=== PATIENT | female | born 1965 | race Caucasian/White ===

== ENCOUNTER 2017-08-21 13:58 | Emergency (ER) | payer SELFPAY ==
[~2017-08-21] VITALS: Ht 170.2 cm; Wt 63.6 kg
[2017-08-21 14:02] VITALS: BP 147/69; PULSE 86; RESP 18; TEMP 97.8; O2SAT 97
--- NOTE | 2017-08-21 22:13 | PD ---
Physical Exam Date Seen by Provider: Aug 21, 2017 Time Seen by Provider: 15:40 Narrative 51-year-old female presents to the emergency department for several complaints. She reports chronic congestion and is worsening over the past week. She also reports neck pain that has also been ongoing for 1 week. Patient also states that over the weekend, her legs gave out and she fell. She would like to be evaluated for these complaints. Data Data Last Documented VS Vital Signs Date Time Temp Pulse Resp B/P (MAP) Pulse Ox O2 Delivery O2 Flow Rate FiO2 08/21/17 14:02 97.8 86 18 147/69 (95) 97 MDM Supervised Visit with STANLEY: No Narrative Course 51-year-old female presents to the emergency department for several complaints. Patient is initially seen in triage. She left AGAINST MEDICAL ADVICE before she could be placed in a medical bed. Diagnosis Primary Impression: Left against medical advice Disposition: 07 AGAINST MEDICAL ADVICE Komal Rivero Aug 21, 2017 22:13
== END 2017-08-21 16:18 | disposition left against medical advice (07) ==
LOC: NED 13:58
DX: M54.2 Cervicalgia (principal)
CPT/HCPCS: 99281

== ENCOUNTER 2018-03-10 20:32 | Inpatient (IN) ==
[2018-03-10] MEDS ORDERED: Sod Chloride 0.9% Inj 1,000 ML IV.SIG ONE ×2 (21:28→21:33)
[2018-03-10] MEDS ORDERED: Vancomycin Inj 1,000 MG in Sodium Chlor 0.9% Inj 250 ML IV.SIG ONE (21:28)
[2018-03-10] MEDS ORDERED: Acetaminophen 650 MG Supp RECTAL ONE (21:30)
--- NOTE | 2018-03-10 22:01 | XR ---
EXAM DATE: 03/10/2018 9:57 PM EDT AGE/SEX: 52 years / Female INDICATIONS: Fever. CLINICAL DATA: This is the patient's initial encounter. Patient reports that signs and symptoms have been present for 1 day and indicates a pain score of Nonresponsive. MEDICAL/SURGICAL HISTORY: Non-responsive. Non-responsive. COMPARISON: No prior exams available for comparison. FINDINGS: The lungs are symmetrically aerated. There is indistinctness of the central bronchopulmonary markings , right greater than left. Cannot exclude central infiltrates. The heart is normal in size. Both mayo diaphragms well delineated. No evidence of pneumothorax. CONCLUSION: Indistinctness of the central bronchopulmonary markings, right greater than left suggesting possible right central infiltrate. Electronically signed by: Horacio Cooper MD 03/10/2018 10:00 PM EDT
[2018-03-10 22:02] LABS: Baso % (Auto) 0.2 % (0.0-2.0); Eos % (Auto) 0.3 % (0.0-4.0); Hemoglobin 14.4 gm/dL (11.6-15.3); Lymph # (Auto) 1.4 th/mm3 (1.0-4.8); Lymph % (Auto) 9.5 % (9.0-44.0); Mean Corpuscular HGB Conc 33.4 % (32.0-36.0); Mean Corpuscular Hemoglobin 29.7 pg (27.0-34.0); Mean Corpuscular Volume 88.9 fL (80.0-100.0); Mono # (Auto) 1.3 th/mm3 (0.0-0.9); Mono % (Auto) 8.9 % (0.0-8.0); Neut # (Auto) 12.2 th/mm3 (1.8-7.7); Neut % (Auto) 81.1 % (16.0-70.0); Platelet Count 219 th/mm3 (150-450); Red Blood Count 4.83 mil/mm3 (4.00-5.30); Red Cell Distribution Width 14.4 % (11.6-17.2); White Blood Count 15.1 th/mm3 (4.0-11.0)
[2018-03-10 22:13] LABS: Activated Partial Thrombo Time 28.5 sec (24.3-30.1); INR 1.3 Ratio; Prothrombin Time 12.7 sec (9.8-11.6)
[2018-03-10 22:24] LABS: Alanine Aminotransferase 32 U/L (10-53); Albumin 2.7 g/dL (3.4-5.0); Anion Gap 9 meq/L (5-15); Aspartate Aminotransferase 29 U/L (15-37); Blood Urea Nitrogen 12 mg/dL (7-18); Calcium 9.3 mg/dL (8.5-10.1); Carbon Dioxide 28.5 meq/L (21.0-32.0); Chloride 98 meq/L (98-107); Glomerular Filtration Rate 54 mL/min (>89); Glucose,Random 103 mg/dL (74-106); Potassium 4.2 meq/L (3.5-5.1); Sodium 135 meq/L (136-145)
[2018-03-10 22:34] LABS: Alkaline Phosphatase 119 U/L (45-117); Thyroid Stimulating Hormone 0.419 uIU/mL (0.358-3.740); Total Protein 7.6 g/dL (6.4-8.2)
[2018-03-10 22:45] LABS: Creatine Kinase 91 U/L (26-192)
[2018-03-10 23:02] LABS: Bilirubin,Urine Negative (Negative); Clarity,Urine Clear (Clear); Color,Urine Amber (Yellw/Straw); Glucose,Urine (UA) Negative (Negative); Leukocyte Esterase,Urine Negative (Negative); Mucus,Urine Few /lpf (Occasional); Nitrite,Urine Negative (Negative); Specific Gravity,Urine 1.018 (1.002-1.035); Urobilinogen,Urine 4 or Greater mg/dL (Less than 2)
[2018-03-10 23:07] LABS: Amphetamine Screen,Urine Neg (Neg); Barbiturate Screen,Urine Neg (Neg); Cannabinoid Screen,Urine Pos (Neg); Cocaine Screen,Urine Neg (Neg)
[2018-03-10 23:12] LABS: Opiate Screen,Urine Pos (Neg)
--- NOTE | 2018-03-10 23:53 | ED ---
HPI General Chief Complaint: Altered Mental Status Stated Complaint: Skin Time Seen by Provider: 03/10/18 20:57 Source: EMS Mode of arrival: EMS Limitations: altered mental status History of Present Illness HPI narrative: 52-year-old female presents to the emergency department reportedly from home after being found partially closed and disoriented by boyfriend. Patient presents via EMS. Patient was identified to have fever upon EMS assessment and upon arrival to the emergency department. Patient is unable to provide any useful history as she is able to provide simple yes no answers to her name but cannot explain why she is here appears very confused. Patient does present febrile. Patient has bilateral upper extremity cellulitis with multiple abscesses some spontaneously draining purulent drainage. Patient has prior history of MRSA infection. Patient does admit to IV drug abuse of prescription medications. Patient does not know when she last injected any of her narcotics. Patient does not complain of any chest pain or abdominal pain no report of vomiting or diarrhea. Patient's O2 saturations on room air 88% patient has very congested cough. MD complaint: altered mental status Onset (ago): hour(s) Timing confirmed by: other (Per EMS from) Severity: severe Consistency of symptoms: unknown Context: drug abuse and unknown Associated symptoms: cough, fever and rash Related Data Home Medications Medication Instructions Recorded Confirmed Unable to Obtain Home Meds 03/11/18 03/11/18 Allergies Allergy/AdvReac Type Severity Reaction Status Date / Time No Known Allergies Allergy Unverified 03/10/18 20:53 Review of Systems ROS Unobtainable ROS Unobtainable: unobtainable due to mental status PMFSH Medical History Medical History Hx MRSA infection (Acute) Surgical History Surgical History Surgical history unknown (Acute) Family History Family History Other Family history unknown Social History Social History Second Hand Smoke Exposure: Yes Smoking Status: Current every day smoker Tobacco Type: Cigarettes How Often Do You Have a Drink Containing Alcohol: Unable to Obtain Recent Travel in [place] within the Last 8 Weeks: No Recent Out of Country Travel within the Last 8 Weeks: No Immunization History Tetanus Immunization: Unable to Assess Hx Influenza Vaccine This Season: Unable to Assess Exam Narrative Exam Narrative: GENERAL: Well-nourished, well-developed patient. GCS 13 (E:3, V: 5, M:5) SKIN: Focused skin assessment warm/dry. Bilateral upper extremities with erythema diffuse soft tissue areas of induration nonfluctuant tender few areas of spontaneously draining ulcerations right upper extremity. HEAD: Normocephalic. Atraumatic no scalp soft tissue swelling redness induration abrasion laceration or bony normality. EYES: No scleral icterus. No injection or drainage. Pupils equal reactive to light. NECK: Supple, trachea midline. No JVD or lymphadenopathy. CARDIOVASCULAR: Increased regular rate and rhythm without murmurs, gallops, or rubs. RESPIRATORY: Breath sounds equal bilaterally with rhonchi right base. No accessory muscle use. GASTROINTESTINAL: Abdomen soft, non-tender, nondistended. No redness induration guarding or rebound no ecchymosis MUSCULOSKELETAL: No cyanosis, or edema. Bilateral lower extremities dorsalis pedis pulses 2+ to palpation bilateral upper extremities radial pulses 2+ to palpation extensive erythema areas of induration. Intact range of motion bilateral upper extremities bilateral lower extremities without deformity. BACK: Nontender without obvious deformity. No CVA tenderness. Course Initial Documented Vital Signs Temperature 103.3 F H 03/10/18 20:49 Pulse Rate 101 H 03/10/18 20:49 Respiratory Rate 20 03/10/18 20:49 Blood Pressure 119/80 03/10/18 20:49 Pulse Oximetry 95 03/10/18 20:49 Last Documented Vital Signs Temperature 98.7 F 03/10/18 23:47 Pulse Rate 76 03/11/18 01:05 Respiratory Rate 16 03/11/18 01:05 Blood Pressure 101/51 L 03/11/18 01:05 Pulse Oximetry 98 03/11/18 01:05 Critical Care Time Critical Care Time: Yes Total Critical Care Time: 35 Attestation: Aggregate critical care time was 35 minutes. Time to perform other separately billable procedures was not included in the critical care time. My time did not include minutes spent treating any other patients simultaneously or on activities that did not directly contribute to the patient's treatment. The services I provided to this patient were to treat and/or prevent clinically significant deterioration that could result in: Respiratory failure, arrhythmia , I provided critical care services requiring my management, as noted below: Chart data review, documentation time, medication orders and management, vital sign assessments/reviewing monitor data, ordering and reviewing lab tests, ordering and interpreting/reviewing x-rays and diagnostic studies, care of the patient and discussion of the patient with the admitting physicians. Medical Decision Making MDM Narrative Medical decision making narrative: Patient was admitted abuse of prescription narcotics with IV drug use presents febrile with altered mentation and bilateral upper extremity cellulitis and multiple various staged abscesses with prior history of MRSA infection. Febrile upon arrival to the emergency department. IV access obtained patient placed on monitoring manager with continuous pulse oximetry 2 L/min nasal cannula administered patient administered 2 L of normal saline vancomycin and cefepime and imaging study identifies central right greater than left infiltrate consistent with probable pneumonia also administered acetaminophen 650 mg rectally and urinary catheter inserted for monitoring of fluid status. After IV fluids and effervescence mentation has improved she knows issues where she is and that she is being admitted; patient does have leukocytosis lactic acid is not elevated chest x-ray shows infiltrate consistent with pneumonia antibiotic spectrum has been brought not to cover for possible aspiration although no evidence of aspiration at this time; urinalysis no source of UTI but urine drug screen is positive for opiates and benzodiazepines and cannabinoids. Patient's case discussed with on-call [facility] MD for admission Medical Screen Exam Complete: Yes Emergency Medical Condition: Yes Differential Diagnosis Differential Diagnosis: Sepsis, pneumonia, endocarditis, cellulitis, multiple abscesses, UTI, seizure, polysubstance abuse, ICH, metabolic encephalopathy, also to consider meningitis although no nuchal rigidity. Medical Records Medical records reviewed: Yes I reviewed the patient's medical records. Lab Data Lab results reviewed: Yes I reviewed the patient's lab results. Result diagrams: 03/10/18 21:40 03/10/18 21:40 Lab Results 03/10/18 03/10/18 03/10/18 Range/Units 21:40 21:40 21:40 WBC 15.1 H (4.0-11.0) th/mm3 RBC 4.83 (4.00-5.30) mil/mm3 Hgb 14.4 (11.6-15.3) gm/dL Hct 43.0 (35.0-46.0) % MCV 88.9 (80.0-100.0) fL MCH 29.7 (27.0-34.0) pg MCHC 33.4 (32.0-36.0) % RDW 14.4 (11.6-17.2) % Plt Count 219 (150-450) th/mm3 MPV 9.0 (7.0-11.0) fL Neut % (Auto) 81.1 H (16.0-70.0) % Lymph % (Auto) 9.5 (9.0-44.0) % [place] % (Auto) 8.9 H (0.0-8.0) % Eos % (Auto) 0.3 (0.0-4.0) % Baso % (Auto) 0.2 (0.0-2.0) % Neut # (Auto) 12.2 H (1.8-7.7) th/mm3 Lymph # (Auto) 1.4 (1.0-4.8) th/mm3 [place] # (Auto) 1.3 H (0.0-0.9) th/mm3 Eos # (Auto) 0.0 (0.0-0.4) th/mm3 Baso # (Auto) 0.0 (0.0-0.2) th/mm3 WBC Differential . Differential Comment Auto diff final PT 12.7 H (9.8-11.6) sec INR 1.3 Ratio APTT 28.5 (24.3-30.1) sec Sodium 135 L (136-145) meq/L Potassium 4.2 (3.5-5.1) meq/L Chloride 98 (98-107) meq/L Carbon Dioxide 28.5 (21.0-32.0) meq/L Anion Gap 9 (5-15) meq/L BUN 12 (7-18) mg/dL Creatinine 1.06 H (0.50-1.00) mg/dL Estimated GFR 54 L (>89) mL/min Random Glucose 103 (74-106) mg/dL Lactic Acid (0.4-2.0) mmol/L Calcium 9.3 (8.5-10.1) mg/dL Total Bilirubin 1.0 (0.2-1.0) mg/dL AST 29 (15-37) U/L ALT 32 (10-53) U/L Alkaline Phosphatase 119 H (45-117) U/L Ammonia (11-32) mcmol/L Total Creatine Kinase 91 (26-192) U/L Troponin I Less than 0.02 L (0.02-0.05) ng/mL Total Protein 7.6 (6.4-8.2) g/dL Albumin 2.7 L (3.4-5.0) g/dL TSH 0.419 (0.358-3.740) uIU/mL Urine Color (Yellw/Straw) Urine Clarity (Clear) Urine pH (5.0-8.5) Ur Specific [place] (1.002-1.035) Urine Protein (Neg-Trace) mg/dL Urine Glucose (UA) (Negative) mg/dL Urine Ketones (Negative) mg/dL Urine Occult Blood (Negative) Urine Nitrate (Negative) Urine Bilirubin (Negative) Urine Urobilinogen (Less than 2) mg/dL Ur Leukocyte Esterase (Negative) Urine RBC (0-3) /hpf Urine WBC (0-5) /hpf Urine Mucus (Occasional) /lpf Micro UA Comment Urine Culture Comments Urine Opiates Screen (Neg) Ur Barbiturates Screen (Neg) Ur Amphetamines Screen (Neg) U Benzodiazepines Scrn (Neg) Urine Cocaine Screen (Neg) U Cannabinoids Screen (Neg) Serum Alcohol Less than 3 (0-5) mg/dL 03/10/18 03/10/18 03/10/18 Range/Units 21:40 22:19 22:40 WBC (4.0-11.0) th/mm3 RBC (4.00-5.30) mil/mm3 Hgb (11.6-15.3) gm/dL Hct (35.0-46.0) % MCV (80.0-100.0) fL MCH (27.0-34.0) pg MCHC (32.0-36.0) % RDW (11.6-17.2) % Plt Count (150-450) th/mm3 MPV (7.0-11.0) fL Neut % (Auto) (16.0-70.0) % Lymph % (Auto) (9.0-44.0) % [place] % (Auto) (0.0-8.0) % Eos % (Auto) (0.0-4.0) % Baso % (Auto) (0.0-2.0) % Neut # (Auto) (1.8-7.7) th/mm3 Lymph # (Auto) (1.0-4.8) th/mm3 [place] # (Auto) (0.0-0.9) th/mm3 Eos # (Auto) (0.0-0.4) th/mm3 Baso # (Auto) (0.0-0.2) th/mm3 WBC Differential Differential Comment PT (9.8-11.6) sec INR Ratio APTT (24.3-30.1) sec Sodium (136-145) meq/L Potassium (3.5-5.1) meq/L Chloride (98-107) meq/L Carbon Dioxide (21.0-32.0) meq/L Anion Gap (5-15) meq/L BUN (7-18) mg/dL Creatinine (0.50-1.00) mg/dL Estimated GFR (>89) mL/min Random Glucose (74-106) mg/dL Lactic Acid 1.4 (0.4-2.0) mmol/L Calcium (8.5-10.1) mg/dL Total Bilirubin (0.2-1.0) mg/dL AST (15-37) U/L ALT (10-53) U/L Alkaline Phosphatase (45-117) U/L Ammonia 27 (11-32) mcmol/L Total Creatine Kinase (26-192) U/L Troponin I (0.02-0.05) ng/mL Total Protein (6.4-8.2) g/dL Albumin (3.4-5.0) g/dL TSH (0.358-3.740) uIU/mL Urine Color (Yellw/Straw) Urine Clarity (Clear) Urine pH (5.0-8.5) Ur Specific [place] (1.002-1.035) Urine Protein (Neg-Trace) mg/dL Urine Glucose (UA) (Negative) mg/dL Urine Ketones (Negative) mg/dL Urine Occult Blood (Negative) Urine Nitrate (Negative) Urine Bilirubin (Negative) Urine Urobilinogen (Less than 2) mg/dL Ur Leukocyte Esterase (Negative) Urine RBC (0-3) /hpf Urine WBC (0-5) /hpf Urine Mucus (Occasional) /lpf Micro UA Comment Urine Culture Comments Urine Opiates Screen Pos H (Neg) Ur Barbiturates Screen Neg (Neg) Ur Amphetamines Screen Neg (Neg) U Benzodiazepines Scrn Pos H (Neg) Urine Cocaine Screen Neg (Neg) U Cannabinoids Screen Pos H (Neg) Serum Alcohol (0-5) mg/dL 03/10/18 Range/Units 22:40 WBC (4.0-11.0) th/mm3 RBC (4.00-5.30) mil/mm3 Hgb (11.6-15.3) gm/dL Hct (35.0-46.0) % MCV (80.0-100.0) fL MCH (27.0-34.0) pg MCHC (32.0-36.0) % RDW (11.6-17.2) % Plt Count (150-450) th/mm3 MPV (7.0-11.0) fL Neut % (Auto) (16.0-70.0) % Lymph % (Auto) (9.0-44.0) % [place] % (Auto) (0.0-8.0) % Eos % (Auto) (0.0-4.0) % Baso % (Auto) (0.0-2.0) % Neut # (Auto) (1.8-7.7) th/mm3 Lymph # (Auto) (1.0-4.8) th/mm3 [place] # (Auto) (0.0-0.9) th/mm3 Eos # (Auto) (0.0-0.4) th/mm3 Baso # (Auto) (0.0-0.2) th/mm3 WBC Differential Differential Comment PT (9.8-11.6) sec INR Ratio APTT (24.3-30.1) sec Sodium (136-145) meq/L Potassium (3.5-5.1) meq/L Chloride (98-107) meq/L Carbon Dioxide (21.0-32.0) meq/L Anion Gap (5-15) meq/L BUN (7-18) mg/dL Creatinine (0.50-1.00) mg/dL Estimated GFR (>89) mL/min Random Glucose (74-106) mg/dL Lactic Acid (0.4-2.0) mmol/L Calcium (8.5-10.1) mg/dL Total Bilirubin (0.2-1.0) mg/dL AST (15-37) U/L ALT (10-53) U/L Alkaline Phosphatase (45-117) U/L Ammonia (11-32) mcmol/L Total Creatine Kinase (26-192) U/L Troponin I (0.02-0.05) ng/mL Total Protein (6.4-8.2) g/dL Albumin (3.4-5.0) g/dL TSH (0.358-3.740) uIU/mL Urine Color [place] (Yellw/Straw) Urine Clarity Clear (Clear) Urine pH 6.0 (5.0-8.5) Ur Specific [place] 1.018 (1.002-1.035) Urine Protein Negative (Neg-Trace) mg/dL Urine Glucose (UA) Negative (Negative) mg/dL Urine Ketones Negative (Negative) mg/dL Urine Occult Blood Negative (Negative) Urine Nitrate Negative (Negative) Urine Bilirubin Negative (Negative) Urine Urobilinogen 4 or greater (Less than 2) mg/dL Ur Leukocyte Esterase Negative (Negative) Urine RBC 1 (0-3) /hpf Urine WBC 1 (0-5) /hpf Urine Mucus Few H (Occasional) /lpf Micro UA Comment Cath-culture not ind Urine Culture Comments Cath-cult not ind Urine Opiates Screen (Neg) Ur Barbiturates Screen (Neg) Ur Amphetamines Screen (Neg) U Benzodiazepines Scrn (Neg) Urine Cocaine Screen (Neg) U Cannabinoids Screen (Neg) Serum Alcohol (0-5) mg/dL Imaging Data Radiologist's impression: Chest X-Ray 03/10/18 21:27 CONCLUSION: Indistinctness of the central bronchopulmonary markings, right greater than left suggesting possible right central infiltrate. Head CT 03/11/18 00:00 CONCLUSION: 1. 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 2. No hemorrhage or acute infarction involving a major vascular territory. 3. Chronic paranasal sinus disease. . ECG Data EKG Prior to Arrival: No Attestation: I personally reviewed and interpreted this ECG as follows: Prior ECG tracings: not available for review Interpretation: EKG: Normal sinus rhythm rate 96 left atrial enlargement no acute ST elevation or injury pattern change noted Discharge Plan Discharge Disposition Patient Disposition: 30 Still Patient Discharge Condition Condition: Fair Discharge Details Diagnosis: Altered mental status, Sepsis, Pneumonia, Polysubstance abuse Physicians Team ED Provider: Yajaira Bradley Primary Care Provider: UNKNOWN, Attending Provider: Mila Woods Status ED Status: Admitted Patient
--- NOTE | 2018-03-11 00:33 | CT ---
EXAM DATE: 03/11/2018 12:19 AM EDT AGE/SEX: 52 years / Female INDICATIONS: Altered mental status. CLINICAL DATA: This is the patient's initial encounter. Patient reports that signs and symptoms have been present for 1 day and indicates a pain score of Nonresponsive. MEDICAL/SURGICAL HISTORY: None. None. RADIATION DOSE: 56.35 CTDI (mGy) COMPARISON: No prior exams available for comparison. TECHNIQUE: CT of the head without contrast. Using automated exposure control and adjustment of the mA and/or kV according to patient size, radiation dose was kept as low as reasonably achievable to ob tain optimal diagnostic quality images. DICOM format image data is available electronically for revi ew and comparison. FINDINGS: Cerebrum: Bilateral basal ganglia lacunar infarctions. The ventricles are normal for age. No eviden ce of midline shift, mass lesion, hemorrhage or acute infarction. No extraaxial fluid collections ar e seen. Posterior Fossa: The cerebellum and brainstem are intact. The 4th ventricle is midline. The cerebe llopontine angle is unremarkable. Extracranial: The visualized portion of the orbits is intact. Significant mucosal thickening involvi ng all visualized paranasal sinuses. No air-fluid levels. Skull: The calvaria is intact. No evidence of skull fracture. CONCLUSION: 1. 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 2. No hemorrhage or acute infarction involving a major vascular territory. 3. Chronic paranasal sinus disease. . Electronically signed by: Horacio Anderson MD 03/11/2018 12:31 AM EDT
[2018-03-11] MEDS ORDERED: Vancomycin Consult Pharmacy OTHER ONE (01:14)
[2018-03-11] MEDS ORDERED: Acetaminophen 325 MG Tablet PO PRN (01:15)
[2018-03-11] MEDS ORDERED: Temazepam 15 MG Capsule PO PRN (01:15)
[2018-03-11] MEDS ORDERED: Bisacodyl 10 MG Supp RECTAL PRN (01:15)
[2018-03-11] MEDS ORDERED: Vancomycin Consult Pharmacy OTHER SCH (01:30)
--- NOTE | 2018-03-11 01:54 | P.HPIM ---
History of Present Illness Primary Care Physician: UNKNOWN History of Present Illness: 52 y/o female with a medical history of IVDA was brought to the ED when she was found disoriented by her boyfriend. Upon assessment patient is only oriented to self, ROS is limited due to mentation. She can not state why she is in the hospital. She was able to tell the ER physician that she does IV drugs, but does not know when she last injected. Patient is currently restrained in soft restraints. She nods no to chest pain. Inpatient Certification: I certify that the inpatient services were ordered in accordance with Medicare regulations governing the order. This includes certification that hospital inpatient services are reasonable and necessary and in the case of services not specified as inpatient-only under 42 CFR 419.22(n), that they are appropriately provided as inpatient services in accordance to with the 2-midnight benchmark under 43 CFR 412.3(e) Estimated Total Length of Stay (Days): 2 Plans for Post Hospital Care: Not yet determined Review of Systems All other systems reviewed negative except as stated [facility] - History History Provided By: [employer] Manager / EMT - Medical History Medical History: Medical History (Last Updated 03/11/18 @ 01:50 by ARIEL Casas) Hx MRSA infection - Surgical History Surgical History: Surgical History (Last Updated 03/11/18 @ 01:51 by ARIEL Casas) Surgical history unknown - Family History Family History: Family History (Last Updated 03/11/18 @ 01:50 by ARIEL Casas) Other Family history unknown - Tobacco History Second Hand Smoke Exposure: Yes Tobacco Use In Past 30 Days: Yes Smoking Status: Current every day smoker Tobacco Type: Cigarettes - Alcohol History How Often Do You Have a Drink Containing Alcohol: Unable to Obtain - Travel History Recent Travel in the [place] Within the Last 8 Weeks: No Recent Travel Out of the Country Within the Last 8 Weeks: No - Immunization History Tetanus Immunization: Unable to Assess Hx Influenza Vaccine This Season: Unable to Assess Medications and Allergies Active Medications: Active Medications Acetaminophen (Tylenol) 650 mg PO Q4H PRN PRN Reason: Temp > 100.4 Al Hydroxide/Mg Hydroxide (Milk Of Magnesia Liq) 30 ml PO Q12H PRN PRN Reason: Mild Constipation Bisacodyl (Dulcolax Supp) 10 mg RECTAL DAILY PRN PRN Reason: SEVERE CONSITIPATION Cefepime HCl 2,000 mg/ Sodium (Chloride) 100 mls @ 200 mls/hr IV.SIG Q8H ASYA Sodium Chloride (Ns Inj) 1,000 mls @ 100 mls/hr IV.CONT .Q10H ASYA Lactulose (Lactulose Liq) 30 ml PO DAILY PRN PRN Reason: SEVERE CONSITIPATION Morphine Sulfate (Morphine Inj) 4 mg IV.PUSH Q4H PRN PRN Reason: pain 6-10 Ondansetron HCl (Zofran Inj) 4 mg IV.PUSH Q6H PRN PRN Reason: NAUSEA OR VOMITING Pharmacy Profile Note (Vancomycin Consult Pharmacy) 1 each OTHER UNSCH ASYA Senna/Docusate Sodium (Roma-Colace) 1 tab PO BID [facility] Sennosides (Senokot) 17.2 mg PO Q12H PRN PRN Reason: Moderate Constipation Sodium Chloride (Ns Flush) 2 ml IV.FLUSH PRN PRN PRN Reason: FLUSH AFTER USING IV ACCESS Temazepam (Restoril) 15 mg PO HS PRN PRN Reason: INSOMNIA Allergies Allergy/AdvReac Type Severity Reaction Status Date / Time No Known Allergies Allergy Unverified 03/10/18 20:53 Home Medications Medication Instructions Recorded Confirmed Type Unable to Obtain Home Meds 03/11/18 03/11/18 History Exam Vital signs: Vital Signs 03/10/18 20:49 03/10/18 22:01 03/10/18 22:40 Temperature 103.3 F H Pulse Rate 101 H 93 H Respiratory Rate 20 18 Blood Pressure 119/80 108/55 L Pulse Oximetry 95 95 94 L 03/10/18 23:47 03/11/18 01:05 Temperature 98.7 F Pulse Rate 88 76 Respiratory Rate 18 16 Blood Pressure 111/57 L 101/51 L Pulse Oximetry 92 L 98 Intake & Output 03/10/18 03/10/18 03/11/18 06:59 18:59 06:59 Intake Total 4350 / 4350 Balance 4350 / 4350 Weight 77.111 kg Intake: IV 2350 / 2350 Maxipime Inj 2,000 MG In NS Inj 100 / 100 100 ML @ 200 mls/hr IV.SIG ONCE ONE Rx#:[id number] NS Inj 1,000 ML @ Wide Open IV. 1999 SIG BOLUS ONE Rx#:[id number] Vancomycin Inj 1,000 MG In NS 250 / 250 Inj 250 ML @ 250 mls/hr IV.SIG ONCE ONE Rx#:[id number] Other 1999 Other: Other Intake Source Saline Solution Narrative: GENERAL: This is a well-nourished, well-developed patient, in no apparent distress. SKIN: bilateral forearm cellulitis draining purulent drainage CARDIOVASCULAR: Regular rate and rhythm without murmurs, gallops, or rubs. RESPIRATORY: Clear to auscultation. Breath sounds equal bilaterally. No wheezes , rales, or rhonchi. GASTROINTESTINAL: Abdomen soft, non-tender, nondistended. Normal active bowel sounds MUSCULOSKELETAL: Extremities without clubbing, cyanosis, or edema. NEURO: Alert x 1 to person. Moves all ext x4, in soft restraints Results - Labs CBC & Chem 7: 03/10/18 21:40 03/10/18 21:40 Labs: Short CBC 03/10/18 Range/Units 21:40 WBC 15.1 H (4.0-11.0) th/mm3 Hgb 14.4 (11.6-15.3) gm/dL Hct 43.0 (35.0-46.0) % Plt Count 219 (150-450) th/mm3 BMP 03/10/18 21:40 Sodium 135 L Potassium 4.2 Chloride 98 Carbon Dioxide 28.5 BUN 12 Creatinine 1.06 H Calcium 9.3 Cardiac Enzymes 03/10/18 Range/Units 21:40 Total Creatine Kinase 91 (26-192) U/L Troponin I Less than 0.02 L (0.02-0.05) ng/mL Liver Function 03/10/18 Range/Units 21:40 Total Bilirubin 1.0 (0.2-1.0) mg/dL AST 29 (15-37) U/L ALT 32 (10-53) U/L Alkaline Phosphatase 119 H (45-117) U/L Albumin 2.7 L (3.4-5.0) g/dL Urine 03/10/18 Range/Units 22:40 Urine Color [place] (Yellw/Straw) Urine Clarity Clear (Clear) Urine pH 6.0 (5.0-8.5) Ur Specific Taylor 1.018 (1.002-1.035) Urine Protein Negative (Neg-Trace) mg/dL Urine Glucose (UA) Negative (Negative) mg/dL - Imaging Impressions Chest X-Ray 03/10/18 21:27 CONCLUSION: Indistinctness of the central bronchopulmonary markings, right greater than left suggesting possible right central infiltrate. Head CT 03/11/18 00:00 CONCLUSION: 1. 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 2. No hemorrhage or acute infarction involving a major vascular territory. 3. Chronic paranasal sinus disease. . Caprini VTE Risk Assessment Caprini VTE Risk Assessment: Moderate/High Risk (score >= 2) Caprini Risk Assessment Model: Point Value = 1 Point Value = 2 Point Value = 3 Point Value = 5 Age 41-60 Minor surgery BMI > 25 kg/m2 Swollen legs Varicose veins or History of unexplained or recurrent spontaneous Oral contraceptives or hormone replacement Sepsis (< 1 month) Serious lung disease, including pneumonia (< 1 month) Abnormal pulmonary function Acute myocardial infarction Congestive heart failure (< 1 month) History of inflammatory bowel disease Medical patient at bed rest Age 61-74 Arthroscopic surgery Major open surgery (> 45 min) Laparoscopic surgery (> 45 min) Malignancy Confined to bed (> 72 hours) Immobilizing plaster cast Central venous access Age >= 75 History of VTE Family history of VTE Factor V Leiden Prothrombin [id number] Lupus anticoagulant Anticardiolipin antibodies Elevated serum homocysteine Heparin-induced thrombocytopenia Other congenital or acquired thrombophilia Stroke (< 1 month) Elective arthroplasty Hip, pelvis, or leg fracture Acute spinal cord injury (< 1 month) Prophylaxis Regimen: Total Risk Factor Score Risk Level Prophylaxis Regimen 0-1 Low Early ambulation 2 Moderate Order ONE of the following: *Sequential Compression Device (SCD) *Heparin 5000 units SQ BID 3-4 Higher Order ONE of the following medications: *Heparin 5000 units SQ TID *Enoxaparin/Lovenox 40 mg SQ daily (WT < 150 kg, CrCl > 30 mL/min) *Enoxaparin/Lovenox 30 mg SQ daily (WT < 150 kg, CrCl > 10-29 mL/min) *Enoxaparin/Lovenox 30 mg SQ BID (WT < 150 kg, CrCl > 30 mL/min) AND/OR *Sequential Compression Device (SCD) 5 or more Highest Order ONE of the following medications: *Heparin 5000 units SQ TID (Preferred with Epidurals) *Enoxaparin/Lovenox 40 mg SQ daily (WT < 150 kg, CrCl > 30 mL/min) *Enoxaparin/Lovenox 30 mg SQ daily (WT < 150 kg, CrCl > 10-29 mL/min) *Enoxaparin/Lovenox 30 mg SQ BID (WT < 150 kg, CrCl > 30 mL/min) AND *Sequential Compression Device (SCD) Assessment and Plan - Plan Sepsis, wbc 15.1, tachycardia r/o Cellulitis, Bilateral forearm, left worse than right -US ordered r/o abscess -IV antibiotics vancomycin and cefepime -wound and blood cultures pending -Consult hand surgery for evaluation -NPO, IVF -Pain management with IV morphine Pneumonia Chest xray reviewed and shows Indistinctness of the central bronchopulmonary markings, right greater than left suggesting possible right central infiltrate. -Cont IVF and antibiotics -Duonebs as needed -IS -Mucinex IVDA -Patient will need counseling when oriented DVT prophylaxis: SCDs Discussed Condition With: Patient and RN
[2018-03-11] MEDS: Sod Chloride 0.9% Inj 1,000 ML IV.CONT SCH ×3 (05:27→22:25)
[2018-03-11] MEDS: Morphine Inj 4 MG/ML Vial IV.PUSH PRN (08:54)
--- NOTE | 2018-03-11 09:27 | US ---
EXAM DATE: 03/11/2018 8:54 AM EDT AGE/SEX: 52 years / Female INDICATIONS: Bilateral upper extremity cellulitis. CLINICAL DATA: This is the patient's initial encounter. Patient reports that signs and symptoms have been present for 4 - 6 days and indicates a pain score of 9/10. MEDICAL/SURGICAL HISTORY: . MRSA. IV drug abuse. None. COMPARISON: No prior exams available for comparison. FINDINGS: Grayscale and Doppler ultrasound imaging was performed in the area of interest which is located in th e left forearm. At the area of interest there is a subcutaneous hypoechoic avascular area measuring 6 .4 x 1.8 x 4.8 cm. Immediately adjacent to this structure is a subcutaneous round hypoechoic avascula r structure measuring 1.1 x 0.7 x 1.1 cm. CONCLUSION: 2 avascular hypoechoic subcutaneous areas at the area of interest in the left forearm. Given the clin ical history these may represent areas of developing infection/abscess. Electronically signed by: Javier Suarez MD 03/11/2018 9:26 AM EDT
[2018-03-11] MEDS: guaiFENesin 600 MG ER Tablet PO SCH ×2 (10:38→22:17)
[2018-03-11] MEDS: Senna/Docusate Sodium 8.6/50 MG Tablet PO SCH ×2 (10:38→22:18)
[2018-03-11] MEDS ORDERED: Lidocaine 2% Inj 50 ML Vial ONE (14:21)
[2018-03-11] MEDS ORDERED: Bupivacaine PF 0.5% Inj 30 ML Vial ONE (14:22)
[2018-03-11] MEDS ORDERED: Neomycin/Polymyxin G.U. Irrigant 1 ML Ampul ONE (15:04)
[2018-03-11] MEDS ORDERED: Lidocaine PF 1% Inj 5 ML Syringe INFILTRATN ONE (16:39)
[2018-03-11] MEDS ORDERED: Sugammadex Inj 200 MG/2 ML Vial IV.PUSH ONE (16:47)
[2018-03-11] MEDS ORDERED: Ketamine Inj 50 MG/5 ML Syringe IV.PUSH ONE (16:48)
--- NOTE | 2018-03-11 17:08 | ECG ---
Date Performed: 03/10/2018 Time Performed: 21:41:37 PTAGE: 52 years EKG: Sinus rhythm POSSIBLE LEFT ATRIAL ENLARGEMENT BORDERLINE RIGHT AXIS DEVIATION BORDERLINE ECG NO PREVIOUS TRACING DOCTOR: Jacques Nolan Interpretating Date/Time 03/11/2018 17:06:30
--- NOTE | 2018-03-11 17:26 | P.OP ---
- Preoperative Diagnosis (1) Abscess of left forearm (2) Abscess of right forearm Date of procedure: 03/11/18 Procedure: incision and drainage of multiple forearm abscesses left forearm incision and drainage multiple forearm abscesses right forearm Anesthesia: GETA Surgeon: Brad Interiano MD Estimated blood loss (mL): 10 Tourniquet time (min): 24 (24 mins left side and 12 mins right side) Pathology: other (swab forearm left and right) Operation and Findings: multiple subcutaneous pockets of abscess seven on the left side and 3 on the right side
[2018-03-11] MEDS ORDERED: fentaNYL Citrate Inj 100 MCG/2 ML Ampul ONE (17:37)
--- NOTE | 2018-03-11 18:07 | MP ---
cc: Brad Interiano MD DATE OF OPERATION: 03/11/2018 PREOPERATIVE DIAGNOSES: Multiple abscesses, left forearm, and multiple abscesses, right forearm. POSTOPERATIVE DIAGNOSES: Multiple abscesses left forearm, and multiple abscesses, right forearm. PROCEDURE PERFORMED: Incision and drainage of multiple abscesses, left forearm, and incision and drainage of multiple abscesses, right forearm. SURGEON: Brad Interiano MD ANESTHESIA: General. ESTIMATED BLOOD LOSS: 10 mL. TOURNIQUET TIME: 24 minutes on the left side and 12 minutes on the right side. SPECIMENS: Sent for culture and sensitivity from the left forearm and right forearm. DISPOSITION: To PACU stable. INDICATIONS FOR PROCEDURE: This is a 52-year-old female with history of IV drug abuse brought in to the ED with confusion and disorientation. The patient was found to have multiple abscesses involving both forearms. She has a history of MRSA. On examination, she had multiple draining abscesses involving the left forearm. She had intact distal circulation. She had intact sensation distally. Most of the abscesses were located in subcutaneous locations with a big abscess located over the proximal forearm extending over the volar and radial aspect of the forearm. She also had fluctuation in the region with draining purulent material. On the right side, she had multiple abscesses draining purulent material and all within subcutaneous locations. An ultrasound showed a complex collection of abscesses involving the proximal forearm measuring about 6 cm longitudinally. She had an elevated white count of 15 and she also had a fever of 103. The patient was consented for incision and drainage of multiple abscesses, both forearms. She was explained the risks and benefits of the procedure. PROCEDURE IN DETAIL: The patient was brought to the operating room. Under general anesthesia, the left upper and right upper extremities were thoroughly prepped and draped. Attention was initially directed to the left forearm. After limb elevation, tourniquet was inflated to 250 mmHg. Incision was made over the volar proximal forearm measuring about 3-4 cm, corresponding to the fluctuation site. After opening up the subcutaneous pocket, there was purulent material within the region with necrotic tissue. With blunt dissection, there was a pocket extending along the volar radial aspect of the proximal forearm onto the lateral aspect of the elbow region. Incision was then made just distal to the lateral aspect of the elbow region and the pocket was connecting between these 2 incisions. Five more incisions were made in the forearm, all small pockets of pus, which were all opened up. There was evidence of necrotic material within the region. A specimen was sent for culture and sensitivity. She did not have any clinical evidence of compartment syndrome. A thorough wash of the wounds was carried out using normal saline mixed with hydrogen peroxide and normal saline mixed with irrigant. About 2 liters of solution was used on the left side. The pockets were then packed with 1/4 inch iodoform packing material. Bleeding points were cauterized using bipolar cautery. The tourniquet was deflated at 24 minutes. A bulky forearm dressing was applied, which was held in place by Sof-Rol and bias hand wrap. Attention was then directed to the right forearm. She had 3 areas of fluctuation, one over the radial aspect of the distal forearm, one over the dorsolateral aspect of the proximal forearm and one in the mid forearm along the radial aspect. Attention was initially directed to the distal forearm. Incision was made. Purulent material was noted in the region and 2-3 mL of purulent material was drained from the region along with necrotic scar tissue, which was debrided. A proximal forearm incision was made measuring about 3 cm. On subcutaneous dissection, there was a pocket of purulent material and about 5-6 mL of purulent material was drained from this region. Another incision was made in the mid forearm corresponding to the fluctuation, which was opened up. There was another pocket of pus along the volar medial aspect of the proximal forearm, which was incised and purulent material was drained from the region. A thorough wash of the wounds was carried out using normal saline mixed with hydrogen peroxide. This was then followed by normal saline mixed with irrigant. Packing of the cavities was carried out with 1/4 inch iodoform packing material. A bulky hand dressing was applied. The tourniquet was deflated at 12 minutes. She had good distal circulation on release of the tourniquet. Sof-Rol and bias hand wrap were applied over the forearm. She had good circulation at the end of the procedure. The patient was recovered and sent to recovery in stable condition. The plan will be to bring her tomorrow for repeat debridement and wash. Brad Interiano MD SE/ariella , 05:32 PM , 05:46 PM
[2018-03-11] MEDS: Vancomycin Inj 1,250 MG in Sodium Chlor 0.9% Inj 250 ML IV.SIG SCH (18:17)
--- NOTE | 2018-03-11 18:26 | MB ---
cc: Brad Interiano MD DATE: 03/11/2018 REASON FOR CONSULTATION: Bilateral forearm infection. HISTORY OF PRESENT ILLNESS: The patient is a 52-year-old, right-hand dominant female brought to the ED by EMS after she was found disoriented by her boyfriend. The patient was found to have multiple forearm abscesses involving the right and left forearms. Hence, hand surgery was consulted. The patient states she has had these for several days now and she is unable to actually provide a reliable history regarding the symptomatology. She does complain of draining material from both forearms. She also complains of a fever. Denies any tingling, numbness. The patient also gives a history of similar complaints in the past and had multiple incisions and drainages of both forearms. She also gives a history of MRSA. The patient does give a history of IV drug abuse. PAST MEDICAL HISTORY: Reviewed. History of MRSA. Most of the other surgical and medical history is unknown. PHYSICAL EXAMINATION: GENERAL: The patient is drowsy, but she does respond to oral commands. EXTREMITIES: Examination of the left upper extremity reveals diffuse swelling of the forearm with multiple healed incision sites where multiple draining purulent material is noted. The most obvious one is on the mid and the lateral forearm. There is evidence of fluctuation over the proximal forearm on the volar and lateral aspects. There is also evidence of fluctuation in multiple areas of the forearm with draining purulent material which has malodor. She has intact capillary refill. The patient is able to make a fist. Terminal degrees of flexion is limited and painful. She has limited and painful wrist motion. Forearm compartments appear to be supple on clinical examination. Most of the swelling and induration is located in subcutaneous locations of the forearm. It extends along the whole lateral forearm. Examination of the right upper extremity reveals diffuse swelling of the forearm. Multiple fluctuant areas are noted. The most obvious one is in the distal forearm on the lateral aspect and over the proximal forearm over the dorsal lateral aspect. Tenderness is noted over the region. She has palpable radial pulses. She is able to make a fist. Terminal degrees of flexion of finger flexion is associated with pain. Wrist range of motion is limited and painful. She has intact distal circulation. She has intact distal sensation. No clinical signs of compartment syndrome of the forearm noted. LABORATORY DATA: Reviewed. She has a white count of 15.3, neutrophil shift of 81%. She had an ultrasound of left upper extremity which shows evidence of a 6 x 2 x 5 cm hypoechoic avascular mass in the mid forearm and another one adjacent which measures about 1.1 x 0.7 x 1.1 cm consistent with abscess. The patient also had a CT scan of the head which shows bilateral basal ganglia lacunar infarcts, no hemorrhage or acute infarction. ASSESSMENT: A 52-year-old female with multiple abscesses involving both forearms, left worse than right. PLAN: Get an infectious disease consult. Continue IV antibiotics. We will take her emergently for incision and drainage of both forearm abscesses. The patient has been explained the risks and benefits of the procedure. Brad Interiano MD SE/ariella , 05:39 PM , 05:50 PM
[2018-03-12] MEDS: Sod Chloride 0.9% Inj 1,000 ML IV.CONT SCH ×2 (06:29→18:02)
[2018-03-12] MEDS: Senna/Docusate Sodium 8.6/50 MG Tablet PO SCH ×2 (08:27→20:13)
[2018-03-12] MEDS: guaiFENesin 600 MG ER Tablet PO SCH ×2 (08:28→20:13)
[2018-03-12] MEDS: Vancomycin Inj 1,250 MG in Sodium Chlor 0.9% Inj 250 ML IV.SIG SCH (09:16)
--- NOTE | 2018-03-12 13:13 | P.PNIM ---
Physical Exam Vital signs: Vital Signs 03/11/18 17:30 03/11/18 17:45 03/11/18 17:55 Temperature 97.5 F L Pulse Rate 92 H 87 Respiratory Rate 24 22 Blood Pressure 120/57 L 122/69 Pulse Oximetry 98 95 90 L 03/11/18 18:00 03/11/18 18:25 03/11/18 18:47 Temperature 98.0 F Pulse Rate 85 84 Respiratory Rate 26 H 20 Blood Pressure 127/66 105/85 Pulse Oximetry 98 94 L 92 L 03/11/18 20:00 03/11/18 20:15 03/11/18 21:02 Temperature 97.7 F 97.8 F Pulse Rate 72 87 69 Respiratory Rate 17 26 H 16 Blood Pressure 109/52 L 124/60 Pulse Oximetry 96 94 L 96 03/12/18 00:00 03/12/18 04:00 03/12/18 04:10 Temperature 97.1 F L 97.7 F Pulse Rate 66 64 62 Respiratory Rate 17 17 Blood Pressure 111/55 L 111/62 Pulse Oximetry 92 L 96 03/12/18 08:00 03/12/18 08:08 03/12/18 12:00 Temperature 97.1 F L 97.3 F L Pulse Rate 76 70 83 Respiratory Rate 18 13 20 Blood Pressure 112/56 L 123/58 L Pulse Oximetry 90 L 94 L 90 L Intake & Output 03/11/18 03/12/18 03/12/18 18:59 06:59 18:59 Intake Total 200 / 200 3562.5 / 3562.5 262.5 / 262.5 Output Total 100 / 100 1160 / 1160 Balance 100 / 100 2402.5 / 2402.5 262.5 / 262.5 Weight 88.4 kg Intake: IV 200 / 200 2462.5 / 2462.5 262.5 / 262.5 NS Inj 1,000 ML @ 100 mls/hr IV 1999 / 1999 .CONT .Q10H ASYA Rx#:[id number] Maxipime Inj 2,000 MG In NS Inj 200 / 200 200 / 200 100 ML @ 200 mls/hr IV.SIG Q8H ASYA Rx#:[id number] Vancomycin Inj 1,250 MG In NS 262.5 / 262.5 262.5 / 262.5 Inj 250 ML @ 250 mls/hr IV.SIG Q18H ASYA Rx#:[id number] Oral 0 / 0 0 / 0 Anesthesia Amount 1100 / 1100 Output: Estimated Blood Loss 10 / 10 Urine Amount (Catheter) 100 / 100 1150 / 1150 Indwelling Urethral Catheter 100 / 100 1150 / 1150 Narrative: GENERAL: Patient lying in bed. Appears comfortable. SKIN: Warm and dry. HEAD: Normocephalic. EYES: No scleral icterus. No injection or drainage. NECK: Supple, trachea midline. No JVD. CARDIOVASCULAR: Regular rate and rhythm without murmurs, gallops, or rubs. RESPIRATORY: Breath sounds equal bilaterally. No accessory muscle use. GASTROINTESTINAL: Abdomen soft, non-tender, nondistended. MUSCULOSKELETAL: No cyanosis, or edema. Left arm dressed. Right arm with abscesses. BACK: Nontender without obvious deformity. No CVA tenderness. - Urinary Catheter Management Indwelling Urethral Catheter Cath placed during this visit: yes Reason for continuing: Other continuation reason Insertion date: 03/10/18 Insertion time: 22:40 Results - Labs CBC & Chem 7: 03/10/18 21:40 03/10/18 21:40 Laboratory Results - last 24 hr 03/11/18 14:41 POC Glucose 82 Microbiology 03/11/18 16:55 Abscess - Arm Gram Stain - Final 03/10/18 21:40 Abscess - Arm Gram Stain - Final 03/10/18 21:40 Abscess - Arm Wound Culture - Final Haemophilus parainfluenzae 03/11/18 16:55 Abscess - Arm Fungal Smear - Final No fungal elements seen 03/11/18 16:25 Abscess - Arm Gram Stain - Final 03/11/18 01:55 Blood - Peripheral Aerobic Blood Culture - Preliminary No growth in 1 day 03/11/18 01:55 Blood - Peripheral Anaerobic Blood Culture - Preliminary No growth in 1 day 03/11/18 02:00 Blood - Peripheral Aerobic Blood Culture - Preliminary No growth in 1 day 03/11/18 02:00 Blood - Peripheral Anaerobic Blood Culture - Preliminary No growth in 1 day 03/11/18 16:25 Abscess - Arm Fungal Smear - Final No fungal elements seen Assessment and Plan - Plan //Sepsis, wbc 15.1, tachycardia r/o Cellulitis, Bilateral forearm, left worse than right -US ordered r/o abscess -IV antibiotics vancomycin and cefepime -wound and blood cultures pending -Consult hand surgery for evaluation -NPO, IVF -Pain management with IV morphine = Continue IV antibiotics as per infectious disease. Surgery this afternoon for abscess. Appreciate has surgery assistance. ID following. //Pneumonia Chest xray reviewed and shows Indistinctness of the central bronchopulmonary markings, right greater than left suggesting possible right central infiltrate. -Cont IVF and antibiotics -Duonebs as needed -IS -Mucinex = Continue antibiotics as per infectious disease. //IVDA -Patient will need counseling when oriented DVT prophylaxis: SCDs Discharge Planning: Pending ID and hand surgery clearance. Cultures pending.
--- NOTE | 2018-03-12 13:38 | P.CONID ---
History of Present Illness Service: Infectious disease Consult date: 03/12/18 Requesting Physician: Rickie Correa Reason for Consult: Evaluate patient with sepsis Primary Care Provider: UNKNOWN History of Present Illness: Patient seen and examined. Records reviewed. Patient is a 52-year-old female, with known history of IV drug use, brought into the hospital by the boyfriend because she was disoriented. Patient was febrile to 103 on admission, and has been afebrile since. Her WBC is 15,000. She was found to have multiple skin abscesses in both upper extremity worse on the left side than on the right side. Patient underwent incision and drainage of her multiple skin abscesses, and cultures are currently pending. There was one culture done in the ED that is currently growing Haemophilus influenza. Patient could not remember when the last time she used injection drugs. Her tox screen was positive for opiates, benzodiazepine, and cannabinoids. Her blood cultures are negative so far. Infectious disease consultation has been requested to evaluate the patient for sepsis. Review of Systems Constitutional: Reports fever(s), Denies headache(s) Eyes: Denies discharge, Denies dry eyes Ears, Nose, Mouth, and Throat: Denies ear discharge, Denies ear pain, Denies facial pain, Denies nasal discharge, Denies sore throat Cardiovascular: Denies chest pain, Denies shortness of breath Respiratory: Reports cough, Denies shortness of breath Gastrointestinal: Denies abdominal pain, Denies nausea, Denies pain with swallowing, Denies vomiting Genitourinary: Denies painful urination Musculoskeletal: Denies joint pain, Denies joint swelling Skin/Breast: Reports sores PMFSH - History History 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 - Medical History Medical History: Medical History (Last Reviewed 03/12/18 @ 13:33 by Gosia Lombardi MD) Hx MRSA infection - Surgical History Surgical History: Surgical History (Last Reviewed 03/12/18 @ 13:33 by Gosia Lombardi MD) Surgical history unknown - Family History Family History: Family History (Last Updated 03/11/18 @ 01:50 by ARIEL Casas) Other Family history unknown - Tobacco History Second Hand Smoke Exposure: Yes Tobacco Use In Past 30 Days: Yes Smoking Status: Heavy tobacco smoker Tobacco Type: Cigarettes - Alcohol History How Often Do You Have a Drink Containing Alcohol: Never - Travel History Recent Travel in the [place] Within the Last 8 Weeks: No Recent Travel Out of the Country Within the Last 8 Weeks: No - Immunization History Tetanus Immunization: Unable to Assess Hx Influenza Vaccine This Season: Unable to Assess Medications and Allergies Active Medications: Active Medications Acetaminophen (Tylenol) 650 mg PO Q4H PRN PRN Reason: Temp > 100.4 Al Hydroxide/Mg Hydroxide (Milk Of Magnesia Liq) 30 ml PO Q12H PRN PRN Reason: Mild Constipation Albuterol (Duoneb Neb (Prn)) 1 ampul NEB Q4HR NEB PRN PRN Reason: sob Albuterol (Duoneb Neb (Annabella)) 1 ampul NEB Q6HR WHILE AWAKE NEB ANNABELLA Last Admin: 03/12/18 08:08 Dose: 1 ampul Bisacodyl (Dulcolax Supp) 10 mg RECTAL DAILY PRN PRN Reason: SEVERE CONSITIPATION Guaifenesin (Mucinex Er) 600 mg PO BID ANNABELLA Last Admin: 03/12/18 08:28 Dose: 600 mg Cefepime HCl 2,000 mg/ Sodium (Chloride) 100 mls @ 200 mls/hr IV.SIG Q8H ANNABELLA Last Infusion: 03/12/18 06:00 Dose: Infused Sodium Chloride (Ns Inj) 1,000 mls @ 100 mls/hr IV.CONT .Q10H ANNABELLA Last Admin: 03/12/18 06:29 Dose: 100 mls/hr Vancomycin HCl 1,250 mg/ (Sodium Chloride) 262.5 mls @ 250 mls/hr IV.SIG Q18H ANNABELLA Last Infusion: 03/12/18 10:54 Dose: Infused Lactulose (Lactulose Liq) 30 ml PO DAILY PRN PRN Reason: SEVERE CONSITIPATION Miscellaneous Information ([facility] Ordered Lab Info) 0 each OTHER ONCE ONE Stop: 03/13/18 03:46 Miscellaneous Information ([facility]) 1 each OTHER UNSCH PRN PRN Reason: SEE LABEL COMMENTS Stop: 03/12/18 17:27 Morphine Sulfate (Morphine Inj) 4 mg IV.PUSH Q4H PRN PRN Reason: pain 6-10 Last Admin: 03/11/18 08:54 Dose: 4 mg Ondansetron HCl (Zofran Inj) 4 mg IV.PUSH Q6H PRN PRN Reason: NAUSEA OR VOMITING Pharmacy Profile Note (Vancomycin Consult Pharmacy) 1 each OTHER [facility] Senna/Docusate Sodium (Roma-Colace) 1 tab PO BID ANNABELLA Last Admin: 03/12/18 08:27 Dose: 1 tab Sennosides (Senokot) 17.2 mg PO Q12H PRN PRN Reason: Moderate Constipation Sodium Chloride (Ns Flush) 2 ml IV.FLUSH PRN PRN PRN Reason: FLUSH AFTER USING IV ACCESS Temazepam (Restoril) 15 mg PO HS PRN PRN Reason: INSOMNIA Allergies Allergy/AdvReac Type Severity Reaction Status Date / Time No Known Allergies Allergy Unverified 03/10/18 20:53 Home Medications Medication Instructions Recorded Confirmed Type Unable to Obtain Home Meds 03/11/18 03/11/18 History Exam Vital signs: Vital Signs 03/11/18 17:30 03/11/18 17:45 03/11/18 17:55 Temperature 97.5 F L Pulse Rate 92 H 87 Respiratory Rate 24 22 Blood Pressure 120/57 L 122/69 Pulse Oximetry 98 95 90 L 03/11/18 18:00 03/11/18 18:25 03/11/18 18:47 Temperature 98.0 F Pulse Rate 85 84 Respiratory Rate 26 H 20 Blood Pressure 127/66 105/85 Pulse Oximetry 98 94 L 92 L 03/11/18 20:00 03/11/18 20:15 03/11/18 21:02 Temperature 97.7 F 97.8 F Pulse Rate 72 87 69 Respiratory Rate 17 26 H 16 Blood Pressure 109/52 L 124/60 Pulse Oximetry 96 94 L 96 03/12/18 00:00 03/12/18 04:00 03/12/18 04:10 Temperature 97.1 F L 97.7 F Pulse Rate 66 64 62 Respiratory Rate 17 17 Blood Pressure 111/55 L 111/62 Pulse Oximetry 92 L 96 03/12/18 08:00 03/12/18 08:08 03/12/18 12:00 Temperature 97.1 F L 97.3 F L Pulse Rate 76 70 83 Respiratory Rate 18 13 20 Blood Pressure 112/56 L 123/58 L Pulse Oximetry 90 L 94 L 90 L Intake & Output 03/11/18 03/12/18 03/12/18 18:59 06:59 18:59 Intake Total 200 / 200 3562.5 / 3562.5 262.5 / 262.5 Output Total 100 / 100 1160 / 1160 Balance 100 / 100 2402.5 / 2402.5 262.5 / 262.5 Weight 88.4 kg Intake: IV 200 / 200 2462.5 / 2462.5 262.5 / 262.5 NS Inj 1,000 ML @ 100 mls/hr IV 1999 / 1999 .CONT .Q10H ANNABELLA Rx#:[id number] Maxipime Inj 2,000 MG In NS Inj 200 / 200 200 / 200 100 ML @ 200 mls/hr IV.SIG Q8H ANNABELLA Rx#:[id number] Vancomycin Inj 1,250 MG In NS 262.5 / 262.5 262.5 / 262.5 Inj 250 ML @ 250 mls/hr IV.SIG Q18H ANNABELLA Rx#:[id number] Oral 0 / 0 0 / 0 Anesthesia Amount 1100 / 1100 Output: Estimated Blood Loss 10 / 10 Urine Amount (Catheter) 100 / 100 1150 / 1150 Indwelling Urethral Catheter 100 / 100 1150 / 1150 Narrative: Physical Examination GENERAL: Patient is a well-nourished, well-developed female, awake and alert , oriented x 3, not in respiratory distress. SKIN: Cool and dry. No generalized rash, no ecchymoses. HEAD: Atraumatic. Normocephalic. No temporal wasting, or tenderness. EYES: [place] conjunctiva. No petechia or hemorrhage. Pupils equal, round and reactive to light. Extraocular movements full and intact. No scleral icterus. No injection or drainage. EARS, NOSE AND THROAT: Nose without bleeding or purulent nasal discharge. No sinus tenderness. Mucous membranes pink and moist. No oral lesions noted. No exudate. No oral thrush. NECK: Trachea midline. Supple and not tender, no meningeal signs CARDIOVASCULAR: Regular rate and rhythm. No murmurs, rubs or gallops heard RESPIRATORY: Clear to auscultation. Breath sounds equal bilaterally. No rales , wheezing or rhonchi ABDOMEN: Soft, non-tender, nondistended. Bowel sounds present and normoactive. No guarding. No rebound. No organomegaly. EXTREMITIES: No clubbing, cyanosis. Has multiple incisions in BUE, more on L , and there is still erythema in her L forearm, The R has minimal erythema. No calf tenderness. Well perfused and warm. NEUROLOGICAL: Awake and alert. Cranial nerves grossly intact. Motor grossly within normal limits. PSYCHIATRIC: Normal affect, calm and cooperative. LINE: No evidence of infection Results - Labs CBC & Chem 7: 03/10/18 21:40 03/10/18 21:40 Labs: Laboratory Results - last 24 hr 03/11/18 14:41 POC Glucose 82 - Imaging Chest X-Ray 03/10/18 21:27 CONCLUSION: Indistinctness of the central bronchopulmonary markings, right greater than left suggesting possible right central infiltrate. Head CT 03/11/18 00:00 CONCLUSION: 1. 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 2. No hemorrhage or acute infarction involving a major vascular territory. 3. Chronic paranasal sinus disease. Upper Extremity Ultrasound 03/11/18 00:00 CONCLUSION: 2 avascular hypoechoic subcutaneous areas at the area of interest in the left forearm. Given the clinical history these may represent areas of developing infection/abscess. Assessment and Plan - Plan Impression Fevers due to infection BUE Confusion on admission, ?possible sepsis, ?due to drugs - better Multiple skin abscesses BUE from IVDU - S/P I and D - C/S pending - once C/S in ED wit Hemophilus Recommendation Follow wound C/S Follow BC Continue Cefepime and Vanco Adjust Abx once C/S finalized Will determine course of Abx once work-up is completed I will follow along with you Thank you for this consultation
[2018-03-12] MEDS ORDERED: Bupivacaine PF 0.5% Inj 30 ML Vial ONE (14:24)
[2018-03-12] MEDS ORDERED: Lidocaine 2% Inj 50 ML Vial ONE (14:24)
[2018-03-12] MEDS ORDERED: Neomycin/Polymyxin G.U. Irrigant 1 ML Ampul ONE (15:17)
[2018-03-12] MEDS ORDERED: Sugammadex Inj 200 MG/2 ML Vial IV.PUSH ONE (16:08)
[2018-03-12] MEDS ORDERED: Chlorhexidine Gluconate 2% 1 Pack (2 Cloths) TOPICAL SCH (16:30)
[2018-03-12] MEDS ORDERED: Metoprolol Tartrate 25 MG Tablet PO SCH (16:30)
[2018-03-12] MEDS ORDERED: Lidocaine PF 1% Inj 5 ML Syringe INFILTRATN ONE (16:39)
[2018-03-12] MEDS ORDERED: Succinylcholine Inj 100 MG/5 ML Syringe IV.PUSH ONE (16:39)
[2018-03-12] MEDS ORDERED: HYDROmorphone PF Inj 2 MG/ML Vial ONE ×2 (16:46→17:28)
[2018-03-12] MEDS ORDERED: Sodium Chlor 0.9% Inj 500 ML IV.SIG SCH (17:00)
--- NOTE | 2018-03-12 17:20 | P.OP ---
- Preoperative Diagnosis (1) Abscess of left forearm (2) Abscess of right forearm - Postoperative Diagnosis (1) Abscess of left forearm (2) Abscess of right forearm Date of procedure: 03/12/18 Procedure: wash and excisional debridement left forearm arm abscesses wash and packing change right forearm abscesses Anesthesia: GETA, ELLIE Surgeon: Brad Interiano MD Estimated blood loss (mL): 5 Pathology: none sent Operation and Findings: minimal purulence and devitalized tissue left forearm minimal purulence right forearm
--- NOTE | 2018-03-12 17:41 | MP ---
cc: Brad Interiano MD DATE OF OPERATION: 03/12/2018 PREOPERATIVE DIAGNOSIS: Bilateral forearm abscesses. POSTOPERATIVE DIAGNOSIS: Bilateral forearm abscesses. PROCEDURE PERFORMED: Excisional debridement of the left forearm and wash with packing change to right forearm abscesses. SURGEON: Brad Interiano MD ANESTHESIA: General. ESTIMATED BLOOD LOSS: Minimal. TOURNIQUET: No tourniquet was used. INDICATIONS: The patient is a 52-year-old female with history of IV drug abuse seen by me yesterday. She had multiple abscesses involving both forearms. The patient underwent incision and drainage of multiple abscesses. She was brought in today for first debridement, bilateral forearms. The patient was explained the risks and benefits of the procedure. PROCEDURE IN DETAIL: The patient was brought to the operating room. Under general anesthesia, the left upper extremity was sterilely prepped and draped. Bilateral upper was then thoroughly prepped and draped. The packing previously placed was removed prior to prepping. Multiple incision and open abscess site on the left forearm was debrided using sharp and blunt dissection using a curette. Minimal purulence noted. She still had induration of the forearm. No compartment syndrome was noted clinically. Thorough wash of the wounds were carried out using normal saline mixed with hydrogen peroxide. This was then followed by normal saline mixed with irrigant. Padding of the wounds were carried out using 1/4-inch iodoform packing material. A bulky forearm dressing was applied which was held in place by Ayde-Richard and quan hand wrap. Attention was then directed to the right forearm. Minimal purulence noted over the abscess site. A thorough wash of the wounds was carried out. Packing changes were carried out using 1/4-inch packing material. A bulky forearm dressing was applied which was held in place by Tg and quan hand wrap. No tourniquet was used throughout the procedure. She had good distal circulation with release of the tourniquet. The patient was recovered and sent to recovery in stable condition. The plan will be to continue with IV antibiotics and follow up cultures. Brad Interiano MD SE/ct , 05:23 PM , 05:33 PM
[2018-03-12] MEDS: Morphine Inj 4 MG/ML Vial IV.PUSH PRN (20:14)
[2018-03-13] MEDS: Morphine Inj 4 MG/ML Vial IV.PUSH PRN ×3 (01:12→15:29)
[2018-03-13] MEDS ORDERED: Pharmacy Ordered Lab Info OTHER ONE (03:45)
[2018-03-13] MEDS: Vancomycin Inj 1,250 MG in Sodium Chlor 0.9% Inj 250 ML IV.SIG SCH ×2 (05:59→18:42)
[2018-03-13] MEDS: Sod Chloride 0.9% Inj 1,000 ML IV.CONT SCH ×2 (06:04→20:44)
[2018-03-13 06:27] LABS: Hematocrit 33.9 % (35.0-46.0); Hemoglobin 11.2 gm/dL (11.6-15.3); Lymph # (Auto) 0.9 th/mm3 (1.0-4.8); Lymph % (Auto) 5.9 % (9.0-44.0); Mean Corpuscular HGB Conc 32.9 % (32.0-36.0); Mean Corpuscular Hemoglobin 29.4 pg (27.0-34.0); Mean Corpuscular Volume 89.1 fL (80.0-100.0); Mean Platelet Volume 9.5 fL (7.0-11.0); Mono # (Auto) 0.4 th/mm3 (0.0-0.9); Mono % (Auto) 2.6 % (0.0-8.0); Neut % (Auto) 91.5 % (16.0-70.0); Platelet Count 240 th/mm3 (150-450); Red Cell Distribution Width 14.5 % (11.6-17.2); White Blood Count 15.3 th/mm3 (4.0-11.0)
[2018-03-13 06:55] LABS: Albumin 1.9 g/dL (3.4-5.0); Anion Gap 8 meq/L (5-15); Aspartate Aminotransferase 17 U/L (15-37); Blood Urea Nitrogen 19 mg/dL (7-18); Calcium 9.2 mg/dL (8.5-10.1); Carbon Dioxide 23.4 meq/L (21.0-32.0); Chloride 114 meq/L (98-107); Glomerular Filtration Rate 72 mL/min (>89); Glucose,Random 142 mg/dL (74-106); Sodium 145 meq/L (136-145)
[2018-03-13 06:57] LABS: Alanine Aminotransferase 19 U/L (10-53); Alkaline Phosphatase 83 U/L (45-117); Total Protein 5.9 g/dL (6.4-8.2)
[2018-03-13] MEDS: guaiFENesin 600 MG ER Tablet PO SCH ×2 (09:09→21:53)
[2018-03-13] MEDS: Senna/Docusate Sodium 8.6/50 MG Tablet PO SCH ×2 (09:09→21:53)
--- NOTE | 2018-03-13 11:58 | ECHRPT ---
Indication: SEPSIS CONCLUSIONS The left ventricular systolic function is normal with an estimated ejection fraction in the range of 60-65%. Normal left ventricular size. Wall thickness is normal. No definite regional wall motion abnormaliti es are present. Trace mitral valve regurgitation. BP: / HR: Rhythm: Sinus MEASUREMENTS (Male / Female) Normal Values Technical Quality:Good 2D ECHO LV Diastolic Diameter PLAX 5.0 cm 4.2 - 5.9 / 3.9 - 5.3 cm LV Systolic Diameter PLAX 3.2 cm IVS Diastolic Thickness 1.0 cm 0.6 - 1.0 / 0.6 - 0.9 cm LVPW Diastolic Thickness 1.0 cm 0.6 - 1.0 / 0.6 - 0.9 cm LV Relative Wall Thickness 0.4 RV Internal Dim ED PLAX 2.5 cm LVOT Diameter 1.8 cm LA Systolic Diameter LX 3.1 cm 3.0 - 4.0 / 2.7 - 3.8 cm M-MODE Aortic Root Diameter MM 1.9 cm LA Systolic Diameter MM 3.4 cm LA Ao Ratio MM 1.8 AV Cusp Separation MM 1.8 cm DOPPLER AV Peak Velocity 157.0 cm/s AV Peak Gradient 9.9 mmHg LVOT Peak Velocity 113.0 cm/s LVOT Peak Gradient 5.1 mmHg AV Area Cont Eq pk 1.8 cm MV Area PHT 4.2 cm Mitral E Point Velocity 106.0 cm/s Mitral A Point Velocity 89.8 cm/s Mitral E to A Ratio 1.2 PV Peak Velocity 136.0 cm/s PV Peak Gradient 7.4 mmHg FINDINGS LEFT VENTRICLE The left ventricular systolic function is normal with an estimated ejection fraction in the range of 60-65%. Normal left ventricular size. Wall thickness is normal. No regional wall motion abnormalities are present. RIGHT VENTRICLE Normal right ventricular size and systolic function. LEFT ATRIUM The left atrial size is normal. RIGHT ATRIUM The right atrial size is normal. ATRIAL SEPTUM Normal atrial septal thickness without atrial level shunting by limited color doppler interrogation. AORTA The aortic root and proximal ascending aorta are normal in size on limited imaging. MITRAL VALVE Structurally normal mitral valve. Trace mitral valve regurgitation. AORTIC VALVE Trileaflet aortic valve. No aortic valve stenosis or regurgitation. TRICUSPID VALVE Structurally normal tricuspid valve. No tricuspid valve stenosis or regurgitation. PULMONARY VALVE The pulmonary valve is not well visualized. VESSELS The inferior vena cava is normal in size. PERICARDIUM No pericardial effusion. Ryland H. Igor MD (Electronically Signed) Final Date:13 March 2018 11:57
--- NOTE | 2018-03-13 18:18 | P.PNIM ---
Subjective Interval history: patient seen this afternoon. sHe reports the pain is controlled. Denies any chest pain or shortness of breath. Physical Exam Vital signs: Vital Signs 03/12/18 19:37 03/12/18 20:00 03/13/18 00:00 Temperature 97.1 F L 97.0 F L Pulse Rate 79 85 84 Respiratory Rate 17 16 17 Blood Pressure 135/75 100/56 L Pulse Oximetry 94 L 91 L 94 L 03/13/18 00:39 03/13/18 04:00 03/13/18 08:00 Temperature 97.1 F L 97.1 F L Pulse Rate 71 73 Respiratory Rate 16 Blood Pressure 119/62 129/65 Pulse Oximetry 93 L 92 L 93 L 03/13/18 08:40 03/13/18 12:00 03/13/18 16:00 Temperature 97.4 F L 97.2 F L Pulse Rate 77 73 64 Respiratory Rate 16 17 18 Blood Pressure 130/61 125/65 Pulse Oximetry 90 L 95 Intake & Output 03/12/18 03/13/18 03/13/18 18:59 06:59 18:59 Intake Total 1762.5 / 1762.5 1362.5 / 1362.5 475 / 475 Output Total 1185 / 1185 900 / 900 900 / 900 Balance 577.5 / 577.5 462.5 / 462.5 -425 / -425 Weight 88.4 kg 88.4 kg Intake: IV 1362.5 / 1362.5 462.5 / 462.5 NS Inj 1,000 ML @ 100 mls/hr IV 1000 / 1000 .CONT .Q10H ASYA Rx#:[id number] Maxipime Inj 2,000 MG In NS Inj 100 / 100 200 / 200 100 ML @ 200 mls/hr IV.SIG Q8H ASYA Rx#:[id number] Vancomycin Inj 1,250 MG In NS 262.5 / 262.5 262.5 / 262.5 Inj 250 ML @ 250 mls/hr IV.SIG Q18H ASYA Rx#:[id number] Oral 900 / 900 475 / 475 Anesthesia Amount 400 / 400 Output: Urine 250 / 250 900 / 900 900 / 900 Estimated Blood Loss 10 / 10 Urine Amount (Catheter) 925 / 925 Indwelling Urethral Catheter 925 / 925 Other: # Bowel Movements 2 0 Narrative: GENERAL: Patient lying in bed. Appears comfortable. SKIN: Warm and dry. HEAD: Normocephalic. EYES: No scleral icterus. No injection or drainage. NECK: Supple, trachea midline. No JVD. CARDIOVASCULAR: Regular rate and rhythm without murmurs, gallops, or rubs. RESPIRATORY: Breath sounds equal bilaterally. No accessory muscle use. GASTROINTESTINAL: Abdomen soft, non-tender, nondistended. MUSCULOSKELETAL: No cyanosis, or edema. Left arm dressed. Right arm dressed with dressings clean dry and intact BACK: Nontender without obvious deformity. No CVA tenderness. - Urinary Catheter Management Indwelling Urethral Catheter Cath placed during this visit: yes Reason for continuing: Other continuation reason Insertion date: 03/10/18 Insertion time: 22:40 Results - Labs CBC & Chem 7: 03/13/18 05:50 03/13/18 05:50 Laboratory Results - last 24 hr 03/13/18 03/13/18 03/13/18 05:50 05:50 05:55 WBC 15.3 H RBC 3.80 L Hgb 11.2 L Hct 33.9 L MCV 89.1 MCH 29.4 MCHC 32.9 RDW 14.5 Plt Count 240 MPV 9.5 Neut % (Auto) 91.5 H Lymph % (Auto) 5.9 L Bell % (Auto) 2.6 Eos % (Auto) 0.0 Baso % (Auto) 0.0 Neut # (Auto) 14.0 H Lymph # (Auto) 0.9 L Bell # (Auto) 0.4 Eos # (Auto) 0.0 Baso # (Auto) 0.0 WBC Differential . Differential Comment Auto diff final Sodium 145 Potassium 4.0 Chloride 114 H Carbon Dioxide 23.4 Anion Gap 8 BUN 19 H Creatinine 0.83 Estimated GFR 72 L Random Glucose 142 H Calcium 9.2 Total Bilirubin 0.3 AST 17 ALT 19 Alkaline Phosphatase 83 Total Protein 5.9 L D Albumin 1.9 L Vancomycin Trough 7.7 Microbiology 03/11/18 16:55 Abscess - Arm Gram Stain - Final 03/11/18 16:55 Abscess - Arm Wound Culture - Final 03/11/18 16:25 Abscess - Arm Gram Stain - Final 03/11/18 16:25 Abscess - Arm Wound Culture - Preliminary Staphylococcus aureus 03/11/18 01:55 Blood - Peripheral Aerobic Blood Culture - Preliminary No growth in 2 days 03/11/18 01:55 Blood - Peripheral Anaerobic Blood Culture - Preliminary No growth in 2 days 03/11/18 02:00 Blood - Peripheral Aerobic Blood Culture - Preliminary No growth in 2 days 03/11/18 02:00 Blood - Peripheral Anaerobic Blood Culture - Preliminary No growth in 2 days 03/11/18 16:55 Abscess - Arm Acid Fast Bacilli Smear - Final No acid fast bacilli seen 03/11/18 16:25 Abscess - Arm Acid Fast Bacilli Smear - Final No acid fast bacilli seen Assessment and Plan - Plan //Sepsis, wbc 15.1, tachycardia r/o Cellulitis, Bilateral forearm, left worse than right -US ordered r/o abscess -IV antibiotics vancomycin and cefepime -wound and blood cultures pending -Consult hand surgery for evaluation -NPO, IVF -Pain management with IV morphine = 03/12Continue IV antibiotics as per infectious disease. Surgery this afternoon for abscess. Appreciate has surgery assistance. ID following. =03/13. Wound cultures with staph. Continue antibiotics as per ID. Appreciate ID and hand surgery assistance. //Pneumonia Chest xray reviewed and shows Indistinctness of the central bronchopulmonary markings, right greater than left suggesting possible right central infiltrate. -Cont IVF and antibiotics -Duonebs as needed -IS -Mucinex = Continue antibiotics as per infectious disease. //IVDA -cessation counseling provided. DVT prophylaxis: SCDs Discharge Planning: Pending ID and hand surgery clearance. Cultures pending.
[2018-03-14] MEDS: Sod Chloride 0.9% Inj 1,000 ML IV.CONT SCH ×2 (01:11→10:09)
[2018-03-14] MEDS: Vancomycin Inj 1,250 MG in Sodium Chlor 0.9% Inj 250 ML IV.SIG SCH (07:33)
[2018-03-14] MEDS ORDERED: Vancomycin Inj 1,250 MG in Sodium Chlor 0.9% Inj 250 ML IV.SIG SCH (08:00)
[2018-03-14] MEDS: guaiFENesin 600 MG ER Tablet PO SCH ×2 (08:53→21:37)
[2018-03-14] MEDS: Senna/Docusate Sodium 8.6/50 MG Tablet PO SCH ×2 (08:53→21:38)
[2018-03-14] MEDS: Morphine Inj 4 MG/ML Vial IV.PUSH PRN ×2 (10:16→15:31)
--- NOTE | 2018-03-14 12:33 | P.PNID ---
Subjective Remarks: Patient is a 52-year-old female, with known history of IV drug use, brought into the hospital by the boyfriend because she was disoriented. Patient was febrile to 103 on admission, and has been afebrile since. Her WBC is 15,000. She was found to have multiple skin abscesses in both upper extremity worse on the left side than on the right side. Patient underwent incision and drainage of her multiple skin abscesses, and cultures are currently pending. There was one culture done in the ED that is currently growing Haemophilus influenza. Patient could not remember when the last time she used injection drugs. Her tox screen was positive for opiates, benzodiazepine, and cannabinoids. Her blood cultures are negative so far. Infectious disease consultation has been requested to evaluate the patient for sepsis. Notes reviewed Afebrile BC negative Intraop C/S MSSA Surface C/S Hemophilus parainfluenza and skin mario Antibiotics: Cefepime Vancomycin Lines: PIV no evidence of infection Past Medical History: Hx MRSA infection Allergies/Adverse Reactions: Allergies No Known Allergies Allergy (Unverified 03/10/18 20:53) Objective Vital Signs 03/13/18 16:00 03/13/18 20:00 03/13/18 20:21 Temperature 97.2 F L 97.2 F L Pulse Rate 64 68 Respiratory Rate 18 19 Blood Pressure 125/65 141/64 H Pulse Oximetry 95 92 L 94 L 03/14/18 00:00 03/14/18 04:00 03/14/18 07:58 Temperature 97.1 F L 97.4 F L Pulse Rate 64 55 L 55 L Respiratory Rate 18 18 16 Blood Pressure 130/60 142/67 H Pulse Oximetry 96 93 L 95 03/14/18 08:00 03/14/18 10:40 03/14/18 12:00 Temperature 95.5 F L 96.0 F L Pulse Rate 78 58 L Respiratory Rate 18 18 17 Blood Pressure 138/66 138/70 Pulse Oximetry 95 96 Intake & Output 03/13/18 03/14/18 03/14/18 18:59 06:59 18:59 Intake Total 475 / 475 550 / 550 100 / 100 Output Total 2100 / 2100 Balance -1625 / -1625 550 / 550 100 / 100 Weight 90 kg Intake: IV 100 / 100 100 / 100 Maxipime Inj 2,000 MG In NS Inj 100 / 100 100 ML @ 200 mls/hr IV.SIG Q8H [facility] Rx#:[id number] Rocephin Inj 2,000 MG In NS Inj 100 / 100 100 ML @ 200 mls/hr IV.SIG Q24H [facility] Rx#:[id number] Oral 475 / 475 450 / 450 Output: Urine 900 / 900 Urine Amount (Catheter) 1200 / 1200 Indwelling Urethral Catheter 1200 / 1200 Other: # Bowel Movements 0 03/11/18 01:55 Blood - Peripheral Aerobic Blood Culture - Preliminary No growth in 3 days 03/11/18 01:55 Blood - Peripheral Anaerobic Blood Culture - Preliminary No growth in 3 days 03/11/18 02:00 Blood - Peripheral Aerobic Blood Culture - Preliminary No growth in 3 days 03/11/18 02:00 Blood - Peripheral Anaerobic Blood Culture - Preliminary No growth in 3 days 03/11/18 16:25 Abscess - Arm Gram Stain - Final 03/11/18 16:25 Abscess - Arm Wound Culture - Final Staphylococcus aureus 03/11/18 16:55 Abscess - Arm Gram Stain - Final 03/11/18 16:55 Abscess - Arm Wound Culture - Final 03/11/18 16:55 Abscess - Arm Acid Fast Bacilli Smear - Final No acid fast bacilli seen 03/11/18 16:55 Abscess - Arm Mycobacterial Culture - Pending 03/11/18 16:25 Abscess - Arm Acid Fast Bacilli Smear - Final No acid fast bacilli seen 03/11/18 16:25 Abscess - Arm Mycobacterial Culture - Pending 03/10/18 21:40 Abscess - Arm Gram Stain - Final 03/10/18 21:40 Abscess - Arm Wound Culture - Final Haemophilus parainfluenzae 03/11/18 16:55 Abscess - Arm Fungal Smear - Final No fungal elements seen 03/11/18 16:55 Abscess - Arm Fungal Culture - Pending 03/11/18 16:25 Abscess - Arm Fungal Smear - Final No fungal elements seen 03/11/18 16:25 Abscess - Arm Fungal Culture - Pending Lab - Hematology Results 03/13/18 05:50 WBC 15.3 H RBC 3.80 L Hgb 11.2 L Hct 33.9 L MCV 89.1 MCH 29.4 MCHC 32.9 RDW 14.5 Plt Count 240 MPV 9.5 Neut % (Auto) 91.5 H Lymph % (Auto) 5.9 L [place] % (Auto) 2.6 Eos % (Auto) 0.0 Baso % (Auto) 0.0 Neut # (Auto) 14.0 H Lymph # (Auto) 0.9 L [place] # (Auto) 0.4 Eos # (Auto) 0.0 Baso # (Auto) 0.0 WBC Differential . Differential Comment Auto diff final Lab - Chemistry Results 03/13/18 05:50 Sodium 145 Potassium 4.0 Chloride 114 H Carbon Dioxide 23.4 Anion Gap 8 BUN 19 H Creatinine 0.83 Estimated GFR 72 L Random Glucose 142 H Calcium 9.2 Total Bilirubin 0.3 AST 17 ALT 19 Alkaline Phosphatase 83 Total Protein 5.9 L D Albumin 1.9 L Imaging: ITS Impressions Chest X-Ray 03/10/18 21:27 CONCLUSION: Indistinctness of the central bronchopulmonary markings, right greater than left suggesting possible right central infiltrate. Head CT 03/11/18 00:00 CONCLUSION: 1. 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 2. No hemorrhage or acute infarction involving a major vascular territory. 3. Chronic paranasal sinus disease. . Upper Extremity Ultrasound 03/11/18 00:00 CONCLUSION: 2 avascular hypoechoic subcutaneous areas at the area of interest in the left forearm. Given the clinical history these may represent areas of developing infection/abscess. Physical Exam: GENERAL: awake and alert, oriented x 3, not in respiratory distress. SKIN: Cool and dry. No generalized rash, no ecchymoses. HEAD: Atraumatic. Normocephalic. No temporal wasting, or tenderness. EYES: [place] conjunctiva. No petechia or hemorrhage. Pupils equal, round and reactive to light. Extraocular movements full and intact. No scleral icterus. No injection or drainage. EARS, NOSE AND THROAT: Nose without bleeding or purulent nasal discharge. No sinus tenderness. Mucous membranes pink and moist. No oral lesions noted. No exudate. No oral thrush. NECK: Trachea midline. Supple and not tender, no meningeal signs CARDIOVASCULAR: Regular rate and rhythm. No murmurs, rubs or gallops heard RESPIRATORY: Clear to auscultation. Breath sounds equal bilaterally. No rales , wheezing or rhonchi ABDOMEN: Soft, non-tender, nondistended. Bowel sounds present and normoactive. No guarding. No rebound. No organomegaly. EXTREMITIES: No clubbing, cyanosis. Has multiple incisions in BUE, more on L , erythema minimal. RUE with clean incisions, minimal erythema. No calf tenderness. Well perfused and warm. NEUROLOGICAL: Grossly non-focal PSYCHIATRIC: Normal affect, calm and cooperative. LINE: No evidence of infection Assessment and Plan - Plan Impression Fevers due to infection BUE Confusion on admission, ?possible sepsis, ?due to drugs - better Multiple skin abscesses BUE from IVDU - S/P I and D - C/S pending - once C/S in ED wit Hemophilus Recommendation Rocephin Stop other Abx If stable, can be D/C on Levaquin x 10 days
[2018-03-14 16:41] LABS: Baso % (Auto) 0.2 % (0.0-2.0); Eos % (Auto) 0.3 % (0.0-4.0); Hematocrit 34.6 % (35.0-46.0); Hemoglobin 11.5 gm/dL (11.6-15.3); Lymph # (Auto) 1.5 th/mm3 (1.0-4.8); Lymph % (Auto) 22.9 % (9.0-44.0); Mean Corpuscular HGB Conc 33.4 % (32.0-36.0); Mean Corpuscular Hemoglobin 30.1 pg (27.0-34.0); Mean Corpuscular Volume 90.2 fL (80.0-100.0); Mean Platelet Volume 9.1 fL (7.0-11.0); Mono # (Auto) 0.4 th/mm3 (0.0-0.9); Mono % (Auto) 6.5 % (0.0-8.0); Neut # (Auto) 4.6 th/mm3 (1.8-7.7); Neut % (Auto) 70.1 % (16.0-70.0); Platelet Count 220 th/mm3 (150-450); Red Blood Count 3.83 mil/mm3 (4.00-5.30); Red Cell Distribution Width 14.7 % (11.6-17.2); White Blood Count 6.6 th/mm3 (4.0-11.0)
--- NOTE | 2018-03-14 16:42 | P.PNIM ---
Subjective Interval history: Patient says she is feeling right. Denies any chest pain or shortness of breath. Reports pain is controlled. Physical Exam Vital signs: Vital Signs 03/13/18 20:00 03/13/18 20:21 03/14/18 00:00 Temperature 97.2 F L 97.1 F L Pulse Rate 68 64 Respiratory Rate 19 18 Blood Pressure 141/64 H 130/60 Pulse Oximetry 92 L 94 L 96 03/14/18 04:00 03/14/18 07:58 03/14/18 08:00 Temperature 97.4 F L 95.5 F L Pulse Rate 55 L 55 L 78 Respiratory Rate 18 16 18 Blood Pressure 142/67 H 138/66 Pulse Oximetry 93 L 95 95 03/14/18 10:40 03/14/18 12:00 03/14/18 13:39 Temperature 96.0 F L Pulse Rate 58 L 73 Respiratory Rate 18 17 16 Blood Pressure 138/70 Pulse Oximetry 96 03/14/18 15:58 Temperature Pulse Rate Respiratory Rate 18 Blood Pressure Pulse Oximetry Intake & Output 03/13/18 03/14/18 03/14/18 18:59 06:59 18:59 Intake Total 475 / 475 550 / 550 100 / 100 Output Total 2100 / 2100 Balance -1625 / -1625 550 / 550 100 / 100 Weight 90 kg Intake: IV 100 / 100 100 / 100 Maxipime Inj 2,000 MG In NS Inj 100 / 100 100 ML @ 200 mls/hr IV.SIG Q8H [facility] Rx#:[id number] Rocephin Inj 2,000 MG In NS Inj 100 / 100 100 ML @ 200 mls/hr IV.SIG Q24H [facility] Rx#:[id number] Oral 475 / 475 450 / 450 Output: Urine 900 / 900 Urine Amount (Catheter) 1200 / 1200 Indwelling Urethral Catheter 1200 / 1200 Other: # Bowel Movements 0 Narrative: GENERAL: Patient lying in bed. Appears comfortable. SKIN: Warm and dry. HEAD: Normocephalic. EYES: No scleral icterus. No injection or drainage. NECK: Supple, trachea midline. No JVD. CARDIOVASCULAR: Regular rate and rhythm without murmurs, gallops, or rubs. RESPIRATORY: Breath sounds equal bilaterally. No accessory muscle use. GASTROINTESTINAL: Abdomen soft, non-tender, nondistended. MUSCULOSKELETAL: No cyanosis, or edema. Left arm dressed. Right arm dressed with dressings clean dry and intact as before BACK: Nontender without obvious deformity. No CVA tenderness. - Urinary Catheter Management Indwelling Urethral Catheter Cath placed during this visit: yes, but has since been removed by the nurse Reason for continuing: Other continuation reason Insertion date: 03/10/18 Insertion time: 22:40 Removal date: 03/13/18 Removal time: 18:00 Results - Labs CBC & Chem 7: 03/13/18 05:50 03/13/18 05:50 Microbiology 03/11/18 01:55 Blood - Peripheral Aerobic Blood Culture - Preliminary No growth in 3 days 03/11/18 01:55 Blood - Peripheral Anaerobic Blood Culture - Preliminary No growth in 3 days 03/11/18 02:00 Blood - Peripheral Aerobic Blood Culture - Preliminary No growth in 3 days 03/11/18 02:00 Blood - Peripheral Anaerobic Blood Culture - Preliminary No growth in 3 days 03/11/18 16:25 Abscess - Arm Gram Stain - Final 03/11/18 16:25 Abscess - Arm Wound Culture - Final Staphylococcus aureus Assessment and Plan - Plan //Sepsis, wbc 15.1, tachycardia r/o Cellulitis, Bilateral forearm, left worse than right -US ordered r/o abscess -IV antibiotics vancomycin and cefepime -wound and blood cultures pending -Consult hand surgery for evaluation -NPO, IVF -Pain management with IV morphine = 03/12Continue IV antibiotics as per infectious disease. Surgery this afternoon for abscess. Appreciate has surgery assistance. ID following. =03/13. Wound cultures with staph. Continue antibiotics as per ID. Appreciate ID and hand surgery assistance. = 03/14. Appreciate ID assistance. ID has cleared for discharge on by mouth Levaquin. Can discharge home when cleared by hand surgery. Appreciate behavioral health consultant assistance. //Pneumonia Chest xray reviewed and shows Indistinctness of the central bronchopulmonary markings, right greater than left suggesting possible right central infiltrate. -Cont IVF and antibiotics -Duonebs as needed -IS -Mucinex = Continue antibiotics as per infectious disease. = Can go home on antibiotics as above. //IVDA -cessation counseling provided. DVT prophylaxis: SCDs Discharge Planning: Home tomorrow on p.o. Levaquin pending surgery clearance.
[2018-03-14] MEDS ORDERED: oxyCODONE/Acetaminophen 10/325 Tablet PO PRN (16:45)
[2018-03-14] MEDS ORDERED: Naloxone Inj 0.4 MG/ML Vial IV.PUSH PRN (16:45)
[2018-03-14 17:00] LABS: Albumin 2.2 g/dL (3.4-5.0); Calcium 9.2 mg/dL (8.5-10.1); Carbon Dioxide 25.6 meq/L (21.0-32.0); Magnesium 2.1 mg/dL (1.5-2.5); Phosphorus 1.4 mg/dL (2.5-4.9); Potassium 3.6 meq/L (3.5-5.1)
[2018-03-14] MEDS: Sodium Chloride 0.45 % Inj 1,000 ML IV.CONT SCH (21:38)
[2018-03-15] MEDS: Sodium Chloride 0.45 % Inj 1,000 ML IV.CONT SCH ×2 (04:04→09:44)
--- NOTE | 2018-03-15 08:54 | P.PNIM ---
Subjective Interval history: Patient says she is feeling all right. Denies any chest pain shortness of breath. Reports pain is controlled. Yesterday there was an incident where when the patient's friends visiting patient. Nurse went in the room and saw patient taking a handful of pills, about 8 tablets some loose some weight. Some reported to be Xanax, some reported to be Dilaudid reportedly patient's home medications. Physical Exam Vital signs: Vital Signs 03/14/18 10:40 03/14/18 12:00 03/14/18 13:39 Temperature 96.0 F L Pulse Rate 58 L 73 Respiratory Rate 18 17 16 Blood Pressure 138/70 Pulse Oximetry 96 03/14/18 15:58 03/14/18 16:00 03/14/18 20:00 Temperature 98.4 F 97.3 F L Pulse Rate 70 58 L Respiratory Rate 18 16 20 Blood Pressure 132/64 154/70 H Pulse Oximetry 97 95 03/14/18 20:42 03/15/18 00:00 03/15/18 04:00 Temperature 97.2 F L 97.5 F L Pulse Rate 88 59 L 64 Respiratory Rate 16 20 18 Blood Pressure 129/62 107/72 Pulse Oximetry 93 L 95 Intake & Output 03/14/18 03/15/18 03/15/18 18:59 06:59 18:59 Intake Total 600 / 600 1240 / 1240 0 / 0 Balance 600 / 600 1240 / 1240 0 / 0 Weight 90.8 kg Intake: IV 100 / 100 1000 / 1000 0 / 0 1/2 Normal Saline Inj 1,000 ML 1000 / 1000 0 / 0 @ 84 mls/hr IV.CONT .[id number] [facility] Rx#:[id number] Rocephin Inj 2,000 MG In NS Inj 100 / 100 100 ML @ 200 mls/hr IV.SIG Q24H [facility] Rx#:[id number] Oral 500 / 500 240 / 240 Other: # Voids 5 4 # Bowel Movements 1 Narrative: GENERAL: Patient lying in bed. Appears comfortable. No change on exam. SKIN: Warm and dry. HEAD: Normocephalic. EYES: No scleral icterus. No injection or drainage. NECK: Supple, trachea midline. No JVD. CARDIOVASCULAR: Regular rate and rhythm without murmurs, gallops, or rubs. RESPIRATORY: Breath sounds equal bilaterally. No accessory muscle use. GASTROINTESTINAL: Abdomen soft, non-tender, nondistended. MUSCULOSKELETAL: No cyanosis, or edema. Left arm dressed. Right arm dressed with dressings clean dry and intact as before BACK: Nontender without obvious deformity. No CVA tenderness. - Urinary Catheter Management Indwelling Urethral Catheter Cath placed during this visit: yes, but has since been removed by the nurse Reason for continuing: Other continuation reason Insertion date: 03/10/18 Insertion time: 22:40 Removal date: 03/13/18 Removal time: 18:00 Results - Labs CBC & Chem 7: 03/14/18 16:10 03/14/18 16:10 Laboratory Results - last 24 hr 03/14/18 03/14/18 16:10 16:10 WBC 6.6 RBC 3.83 L Hgb 11.5 L Hct 34.6 L MCV 90.2 MCH 30.1 MCHC 33.4 RDW 14.7 Plt Count 220 MPV 9.1 Prelim Diff (Auto) Slide review pending Neut % (Auto) 70.1 H Lymph % (Auto) 22.9 [place] % (Auto) 6.5 Eos % (Auto) 0.3 Baso % (Auto) 0.2 Neut # (Auto) 4.6 Lymph # (Auto) 1.5 [place] # (Auto) 0.4 Eos # (Auto) 0.0 Baso # (Auto) 0.0 WBC Differential . Differential Comment . Sodium 146 H Potassium 3.6 Chloride 113 H Carbon Dioxide 25.6 Anion Gap 7 BUN 16 Creatinine 0.89 Estimated GFR 66 L Random Glucose 80 Calcium 9.2 Phosphorus 1.4 L Magnesium 2.1 Albumin 2.2 L Microbiology 03/11/18 01:55 Blood - Peripheral Aerobic Blood Culture - Preliminary No growth in 3 days 03/11/18 01:55 Blood - Peripheral Anaerobic Blood Culture - Preliminary No growth in 3 days 03/11/18 02:00 Blood - Peripheral Aerobic Blood Culture - Preliminary No growth in 3 days 03/11/18 02:00 Blood - Peripheral Anaerobic Blood Culture - Preliminary No growth in 3 days 03/11/18 16:25 Abscess - Arm Gram Stain - Final 03/11/18 16:25 Abscess - Arm Wound Culture - Final Staphylococcus aureus Assessment and Plan - Plan //Sepsis, wbc 15.1, tachycardia r/o Cellulitis, Bilateral forearm, left worse than right -US ordered r/o abscess -IV antibiotics vancomycin and cefepime -wound and blood cultures pending -Consult hand surgery for evaluation -NPO, IVF -Pain management with IV morphine = 03/12Continue IV antibiotics as per infectious disease. Surgery this afternoon for abscess. Appreciate has surgery assistance. ID following. =03/13. Wound cultures with staph. Continue antibiotics as per ID. Appreciate ID and hand surgery assistance. = 03/14. Appreciate ID assistance. ID has cleared for discharge on by mouth Levaquin. Can discharge home when cleared by hand surgery. Appreciate communications consultant assistance. = Discharge home on by mouth Levaquin when cleared by hand surgery. //Pneumonia Chest xray reviewed and shows Indistinctness of the central bronchopulmonary markings, right greater than left suggesting possible right central infiltrate. -Cont IVF and antibiotics -Duonebs as needed -IS -Mucinex = Continue antibiotics as per infectious disease. = Can go home on antibiotics as above. //Hypernatremia. On half-normal saline. Pending repeat sodium. //IVDA -cessation counseling provided. DVT prophylaxis: SCDs Discharge Planning: Home on p.o. Levaquin pending surgery clearance.
--- NOTE | 2018-03-15 08:58 | P.DS ---
Date of admission: 03/11/18 00:58 Primary care physician: UNKNOWN Brief History from admission: 52 y/o female with a medical history of IVDA was brought to the ED when she was found disoriented by her boyfriend. Upon assessment patient is only oriented to self, ROS is limited due to mentation. She can not state why she is in the hospital. She was able to tell the ER physician that she does IV drugs, but does not know when she last injected. Patient is currently restrained in soft restraints. She nods no to chest pain. DS: Summary Hospital Course: Patient admitted with sepsis, found to have bilateral arm abscesses. These were cultured. Infectious disease and hand surgery consulted. Patient underwent bilateral arm incision and drainage. Cultures with Haemophilus parainfluenza as well as staph aureus. Infectious disease recommends discharge home on by mouth Levaquin to complete treatment course. Patient was found to have pneumonia on chest x-ray. Will need repeat chest x-ray as outpatient. Patient will need to follow-up with hand surgery as outpatient. Incident during hospitalization where patient's friend brought in home medications which patient took all at once about 8 tablets some weight and some blue. Reported to be Xanax and hydromorphone. Patient was counseled. For problem based summary from most recent progress note, please see below. //Sepsis, wbc 15.1, tachycardia r/o Cellulitis, Bilateral forearm, left worse than right -US ordered r/o abscess -IV antibiotics vancomycin and cefepime -wound and blood cultures pending -Consult hand surgery for evaluation -NPO, IVF -Pain management with IV morphine = 03/12Continue IV antibiotics as per infectious disease. Surgery this afternoon for abscess. Appreciate has surgery assistance. ID following. =03/13. Wound cultures with staph. Continue antibiotics as per ID. Appreciate ID and hand surgery assistance. = 03/14. Appreciate ID assistance. ID has cleared for discharge on by mouth Levaquin. Can discharge home when cleared by hand surgery. Appreciate e business consultant assistance. = Discharge home on by mouth Levaquin when cleared by hand surgery. //Pneumonia Chest xray reviewed and shows Indistinctness of the central bronchopulmonary markings, right greater than left suggesting possible right central infiltrate. -Cont IVF and antibiotics -Duonebs as needed -IS -Mucinex = Continue antibiotics as per infectious disease. = Can go home on antibiotics as above. //Hypernatremia. On half-normal saline. Pending repeat sodium. //IVDA -cessation counseling provided. DVT prophylaxis: SCDs Discharge Planning: Home on p.o. Levaquin pending surgery clearance. - Time Spent with Patient Total time spent providing and/or coordinating discharge services: Greater than 30 minutes - Quality: VTE Deep Vein Thrombosis/Pulmonary Embolism Present on Admission: No Exam Vital signs: Vital Signs 03/14/18 10:40 03/14/18 12:00 03/14/18 13:39 Temperature 96.0 F L Pulse Rate 58 L 73 Respiratory Rate 18 17 16 Blood Pressure 138/70 Pulse Oximetry 96 03/14/18 15:58 03/14/18 16:00 03/14/18 20:00 Temperature 98.4 F 97.3 F L Pulse Rate 70 58 L Respiratory Rate 18 16 20 Blood Pressure 132/64 154/70 H Pulse Oximetry 97 95 03/14/18 20:42 03/15/18 00:00 03/15/18 04:00 Temperature 97.2 F L 97.5 F L Pulse Rate 88 59 L 64 Respiratory Rate 16 20 18 Blood Pressure 129/62 107/72 Pulse Oximetry 93 L 95 Intake & Output 03/14/18 03/15/18 03/15/18 18:59 06:59 18:59 Intake Total 600 / 600 1240 / 1240 0 / 0 Balance 600 / 600 1240 / 1240 0 / 0 Weight 90.8 kg Intake: IV 100 / 100 1000 / 1000 0 / 0 1/2 Normal Saline Inj 1,000 ML 1000 / 1000 0 / 0 @ 84 mls/hr IV.CONT .[id number] [facility] Rx#:[id number] Rocephin Inj 2,000 MG In NS Inj 100 / 100 100 ML @ 200 mls/hr IV.SIG Q24H [facility] Rx#:[id number] Oral 500 / 500 240 / 240 Other: # Voids 5 4 # Bowel Movements 1 Results Procedures completed during hospitalization: Bilateral arms with multiple incision and drainages. Labs on day of discharge: Labs from last 24 hours 03/14/18 03/14/18 16:10 16:10 WBC 6.6 RBC 3.83 L Hgb 11.5 L Hct 34.6 L MCV 90.2 MCH 30.1 MCHC 33.4 RDW 14.7 Plt Count 220 MPV 9.1 Prelim Diff (Auto) Slide review pending Neut % (Auto) 70.1 H Lymph % (Auto) 22.9 [place] % (Auto) 6.5 Eos % (Auto) 0.3 Baso % (Auto) 0.2 Neut # (Auto) 4.6 Lymph # (Auto) 1.5 [place] # (Auto) 0.4 Eos # (Auto) 0.0 Baso # (Auto) 0.0 WBC Differential . Differential Comment . Sodium 146 H Potassium 3.6 Chloride 113 H Carbon Dioxide 25.6 Anion Gap 7 BUN 16 Creatinine 0.89 Estimated GFR 66 L Random Glucose 80 Calcium 9.2 Phosphorus 1.4 L Magnesium 2.1 Albumin 2.2 L Preliminary micro results at discharge 03/11/18 01:55 Aerobic Blood Culture - Preliminary Blood - Peripheral No growth in 3 days Anaerobic Blood Culture - Preliminary No growth in 3 days 03/11/18 02:00 Aerobic Blood Culture - Preliminary Blood - Peripheral No growth in 3 days Anaerobic Blood Culture - Preliminary No growth in 3 days - Impressions ITS Impressions Chest X-Ray 03/10/18 21:27 CONCLUSION: Indistinctness of the central bronchopulmonary markings, right greater than left suggesting possible right central infiltrate. Head CT 03/11/18 00:00 CONCLUSION: 1. 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 2. No hemorrhage or acute infarction involving a major vascular territory. 3. Chronic paranasal sinus disease. . Upper Extremity Ultrasound 03/11/18 00:00 CONCLUSION: 2 avascular hypoechoic subcutaneous areas at the area of interest in the left forearm. Given the clinical history these may represent areas of developing infection/abscess. Discharge Plan - Discharge Disposition Patient Disposition: 01 Discharge Home - Discharge Condition Condition: Fair - Discharge Order Discharge Orders: Discharge Order (Routine); Ordered 03/15/18 Ordered By: Rickie Correa - Discharge Details Anticipated Discharge Date: 03/15/18 Discharge Comment: Discharge When cleared by Hand surgery, and if labs return with sodium less than 145 - Physicians Team Primary Care Provider: UNKNOWN, Attending Provider: Rickie Correa Other Providers: Brad Interiano MD ; Gosia Lombardi MD
[2018-03-15] MEDS: Senna/Docusate Sodium 8.6/50 MG Tablet PO SCH (09:44)
[2018-03-15] MEDS: guaiFENesin 600 MG ER Tablet PO SCH (09:44)
[2018-03-15] MEDS ORDERED: Potassium Phosphate Inj 15 MMOL in Sodium Chlor 0.9% Inj 150 ML IV.SIG ONE (10:30)
[2018-03-15 11:32] LABS: Baso % (Auto) 0.2 % (0.0-2.0); Eos # (Auto) 0.1 th/mm3 (0.0-0.4); Eos % (Auto) 1.7 % (0.0-4.0); Hematocrit 32.2 % (35.0-46.0); Hemoglobin 10.6 gm/dL (11.6-15.3); Lymph # (Auto) 1.6 th/mm3 (1.0-4.8); Lymph % (Auto) 26.1 % (9.0-44.0); Mean Corpuscular HGB Conc 32.9 % (32.0-36.0); Mean Corpuscular Hemoglobin 29.8 pg (27.0-34.0); Mean Corpuscular Volume 90.6 fL (80.0-100.0); Mean Platelet Volume 9.1 fL (7.0-11.0); Mono # (Auto) 0.4 th/mm3 (0.0-0.9); Neut # (Auto) 3.9 th/mm3 (1.8-7.7); Platelet Count 196 th/mm3 (150-450); Red Blood Count 3.55 mil/mm3 (4.00-5.30); Red Cell Distribution Width 14.9 % (11.6-17.2)
[2018-03-15 11:55] LABS: Albumin 2.3 g/dL (3.4-5.0); Calcium 9.2 mg/dL (8.5-10.1); Carbon Dioxide 26.5 meq/L (21.0-32.0); Magnesium 1.9 mg/dL (1.5-2.5); Phosphorus 2.4 mg/dL (2.5-4.9); Potassium 3.5 meq/L (3.5-5.1)
[2018-03-15 12:29] VITALS: BP 165/81; PULSE 16; TEMP 97.4; O2SAT 92
[2018-03-15 16:13] VITALS: RESP 20
[2018-03-15] MEDS ORDERED: Pharmacy Ordered Lab Info OTHER ONE (19:45)
== END 2018-03-15 16:40 | disposition home or self-care (01) ==
LOC: NEPC 20:32 → NEDA 03-11 00:58 → NEPGCP 03-11 02:31 → N07 03-11 17:21
PROVIDERS: ADMIT Internal Medicine; ATTEND Internal Medicine